=== PATIENT | male | born 1975 | race Native Hawaiian/Other Pacific Islander ===

== ENCOUNTER 2023-11-19 11:25 | Inpatient (IN) | payer OTHER, SELFPAY ==
[2023-11-19] VITALS (17 sets, daily range): BP systolic 116–146; BP diastolic 77–105; PULSE 111–119; RESP 16–25; TEMP 36.7–36.8; O2SAT 90–94; BMI 33.0; BMI 30.4
--- NOTE | 2023-11-19 11:26 | XR_ITS ---
WS: [id number] Portable AP upright chest, 11/19/2023 Clinical Data: sob Comparison: None. Findings: No nodules, masses or effusions are seen. The heart is normal. The pulmonary vascularity is not increased. No pneumonia or pneumothorax is seen. Impression: Negative chest.
--- NOTE | 2023-11-19 11:34 | ECG_ITS ---
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 Measurements Intervals [place] Rate: 117 P: 43 [place]: 134 QRS: -76 QRSD: 97 T: 50 QT: 306 QTc: 428 Interpretive Statements SINUS TACHYCARDIA LEFT AXIS DEVIATION [QRS AXIS < -30] No previous ECG available for comparison Electronically Signed On 11-19-2023 14:42:18 COMMUNITY ASSISTANT by Favian Palacio M.D. [email or web address]/[id number]
--- NOTE | 2023-11-19 11:39 | W.ED.SOB ---
HPI - SOB/Dyspnea General: Chief Complaint: Shortness of Breath/Dyspnea Stated Complaint: post op trouble, sob Time Seen by Provider: 11/19/23 11:34 Source: patient Mode of arrival: ambulatory Limitations: no limitations History of Present Illness: HPI Narrative: 48-year-old male states that he had pancreatic stent that was replaced on Thursday in [place] he states that he has gastroparesis and vomited and aspirated during the procedure he states he had to be intubated overnight and they released him yesterday he has been on Levaquin he states he has been having increasing shortness of breath and worsening cough and some low-grade fevers denies any abdominal pain. Associated symptoms: Reports fever(s); Deny abdominal pain, chest pain, nausea or vomiting Review of Systems Const: Reports: fever(s) and chills; Denies: body aches or change in appetite Eyes: Denies: blurry vision or eye discomfort ENMT: Denies: throat pain or dental pain Card: Denies: chest pain Resp: Reports: dyspnea and non-productive cough GI: Denies: abdominal pain, nausea, vomiting or diarrhea Musc: Denies: neck pain or back pain Skin/Breast: Denies: rash Neuro: Denies: headache(s) Physical Exam Const: COMMON NORMALS: patient oriented x3 HENMT: COMMON NORMALS: normocephalic and atraumatic HEAD & SCALP: normocephalic and atraumatic Neck/C-Spine: COMMON NORMALS: full ROM and supple Chest: COMMONS NORMALS: normal inspection of the chest and normal palpation of entire chest wall Resp: COMMON NORMALS: No retractions AUSCULTATION: rales Cardio: COMMON NORMALS: regular rhythm and No murmurs present (Cardio) RATE: tachycardic RHYTHM: regular rhythm GI: INSPECTION: Yes normal to inspection Extremity: COMMON NORMALS: normal to inspection and full ROM Neuro: COMMON NORMALS: patient oriented x3, moves all extremities and no focal motor deficits Psych: COMMON NORMALS: mental status grossly normal, Normal thought process present and cooperative THOUGHT PROCESS: Normal thought process present Skin: COMMON NORMALS: no rashes or lesions noted and no wounds GENERAL SKIN EXAM: no rashes or lesions noted Course Vital Signs: Vital signs: Vital Signs Temperature 98.0 F 11/19/23 11:30 Pulse Rate 118 H 11/19/23 12:03 Respiratory Rate 16 11/19/23 11:30 Blood Pressure 131/85 11/19/23 12:03 Pulse Oximetry 92 11/19/23 12:03 Oxygen Delivery Me thod Room Air 11/19/23 12:03 MDM - SOB/Dyspnea Medical Decision Making Patient presents here with shortness of breath from likely aspiration pneumonia CT of his chest does show pneumonia he has been having increasing shortness of breath on the oral antibiotics he is oxygen is around 90% here I did speak to the hospitalist will admit for IV antibiotics at this time. Medical Records I reviewed the patient's medical records. Lab Data I reviewed the patient's lab results. 11/19/23 11:50 11/19/23 11:50 Labs/Radiology: Laboratory Results WBC 13.78 10^3/uL (3.29-11.43) H 11/19/23 11:50 RBC 5.59 10^6/uL (3.85-5.65) 11/19/23 11:50 Hgb 14.70 g/dL (11.27-16.99) 11/19/23 11:50 Hct 44.9 % (37-53) 11/19/23 11:50 MCV 80.3 fl (82-101) L 11/19/23 11:50 MCH 26.3 pg (27-33) L 11/19/23 11:50 MCHC 32.7 g/dL (30-55) 11/19/23 11:50 RDW 13.9 % (12.1-15.1) 11/19/23 11:50 Plt Count 318 10^3/cmm (157-399) 11/19/23 11:50 MPV 8.9 fL (7.4-10.4) 11/19/23 11:50 Neut % (Auto) 74.0 % 11/19/23 11:50 Lymph % (Auto) 15.1 % 11/19/23 11:50 [place] % (Auto) 9.2 % 11/19/23 11:50 Eos % (Auto) 1.1 % 11/19/23 11:50 Baso % (Auto) 0.2 % 11/19/23 11:50 Neut # (Auto) 10.19 10^3/uL (1.8-7.7) H 11/19/23 11:50 Lymph # (Auto) 2.1 10^3/uL (0.8-4.8) 11/19/23 11:50 [place] # (Auto) 1.3 10^3/uL (0.2-0.9) H 11/19/23 11:50 Eos # (Auto) 0.2 10^3/uL (0.0-0.8) 11/19/23 11:50 Baso # (Auto) 0.0 10^3/uL (0.0-0.1) 11/19/23 11:50 Nucleated RBC % (auto) 0 % 11/19/23 11:50 Nucleated RBCs # 0.0 /100WBC 11/19/23 11:50 PT 13.80 SECONDS (12.1-14.9) 11/19/23 11:50 INR 1.03 (0.8-1.2) 11/19/23 11:50 Sodium 134 mmol/L (136-145) L 11/19/23 11:50 Potassium 4.0 mmol/L (3.5-5.1) 11/19/23 11:50 Chloride 94 mmol/L (98-107) L 11/19/23 11:50 Carbon Dioxide 25 mmol/L (22-29) 11/19/23 11:50 Anion Gap 19.0 (5-19) 11/19/23 11:50 BUN 17 mg/dL (6-20) 11/19/23 11:50 Creatinine 1.1 mg/dL (0.7-1.2) 11/19/23 11:50 GFR Calculation 70.9 mL/min (90-130) L 11/19/23 11:50 Glucose 182 mg/dL (65-115) H 11/19/23 11:50 Calculated Osmolality 284 mOsm/kg (285-295) L 11/19/23 11:50 Calcium 9.5 mg/dL (8.5-10.5) 11/19/23 11:50 Total Bilirubin 0.7 mg/dL (0.15-1.2) 11/19/23 11:50 AST 39 U/L (0-40) 11/19/23 11:50 ALT 64 U/L (0-41) H 11/19/23 11:50 Alkaline Phosphatase 95 U/L (40-130) 11/19/23 11:50 Troponin T Baseline 11 ng/L (0-15) 11/19/23 11:50 NT-Pro-B Natriuret Pep 41 pg/mL (0-125) 11/19/23 11:50 Total Protein 7.9 g/dL (6.6-8.7) 11/19/23 11:50 Albumin 4.5 g/dL (3.5-5.2) 11/19/23 11:50 Globulin 3.4 g/dL (1.3-4.6) 11/19/23 11:50 All radiology interpretation(s) finalized by discharge EKG Data EKG 1: I personally reviewed and interpreted this EKG as follows: EKG Interpretation Date: 11/19/23 EKG interpretation time: 11:40 Interpretation: sinus tach hr [address] or t wave abnormalities qts 97 qtc 375 EKG 2: I personally reviewed and interpreted this EKG as follows: EKG Interpretation Date: 11/19/23 EKG interpretation time: 13:39 Interpretation: sinus tachy hr [address] or t wave abnormalities qrs 97 qtc 380 Discharge Plan Discharge Condition: Stable Prescriptions: No Action acetaminophen 325 mg Tablet 325 mg PO Q4H PRN (Reason: pain or fever) cetirizine 10 mg Tablet 10 mg PO DAILY PRN (Reason: allergies) chlorthalidone 25 mg Tablet 25 mg PO QAM Throat Lozenges 2.4 mg Lozenge 1 tara MUCOUS MEMBRANE Q2H PRN (Reason: Sore Throat) Levaquin 500 mg Tablet 500 mg PO DAILY albuterol sulfate 90 mcg/actuation Hfa Aerosol Inhaler 2 inh INHALATION Q6H PRN (Reason: Shortness Of Breath) fluticasone propionate [Flonase] 50 mcg/actuation [place],Suspension 2 spray INTRANASAL QAM Rx Instructions: administer into each nostril Dilacor XR 180 mg Capsule,Ext.Rel 24h Degradable 180 mg PO BEDTIME fenofibrate nanocrystallized 145 mg Tablet 145 mg PO QAM Creon 24,000-76,000 -120,000 unit Capsule,Delayed Release(Dr/Ec) 2 cap PO TID Rx Instructions: administer with meals and/or snacks Spiriva Respimat 2.5 mcg/actuation Mist 2 puff INHALATION QAM losartan 50 mg Tablet 75 mg PO BEDTIME ondansetron HCl 8 mg Tablet 8 mg PO Q6H PRN (Reason: nausea or vomiting) insulin aspart U-100 100 unit/mL Solution 100 unit SUBCUT PRN pantoprazole [address] For Susp In Packet 40 mg PO QAM Coding Level of Care Code ED Fountain Dispenser for Velasquez Barger
--- NOTE | 2023-11-19 11:48 | CT_ITS ---
WS: [id number] CTA OF THE CHEST WITH PULMONARY EMBOLISM PROTOCOL TECHNIQUE: High-resolution contrast enhanced CTA of the chest with coronal and sagittal reformatted i chelsys with pulmonary embolism protocol. MIP images are also reviewed. CLINICAL INFORMATION: sob COMPARISON: None. DLP: 438.[address] scans at [facility] use at least one of these dose optimization techniques: automated e xposure control; mA and/or kV adjustment per patient size (includes targeted exams where dose is matc hed to clinical indication); or iterative reconstruction. FINDINGS: Proximal main pulmonary arteries are normal. Normal segmental and subsegmental pulmonary arteries. No evidence of pulmonary embolus. No filling defects to suggest pulmonary embolus. Small hazy opacities along the subsegmental pulmonary arteries in the LEFT greater than RIGHT upper lobes can be seen wit h septic emboli. Patchy infiltrates in the LEFT lower lobe with tree-in-bud opacities. Compressive at electasis LEFT lower lobe. Normal caliber thoracic aorta. Normal caliber descending thoracic aorta. No mediastinal or hilar lymp hadenopathy. No axillary lymphadenopathy. Diffuse fatty infiltration of the liver. Incidental pneumob shadia. Cholecystectomy. Small esophageal hernia. Adrenal glands are normal. Mild thoracic curve. Schmo rl's node in the lower thoracic spine. IMPRESSION: 1. No evidence of pulmonary embolus. 2. Patchy peripheral wedge-shaped opacities in the LEFT greater than RIGHT upper lobes nonspecific b ut can be seen with septic emboli. Recommend correlation for endocarditis. 3. Patchy infiltrates and atelectasis in the LEFT lower lobe with tree-in-bud nodularity. Slight com pressive atelectasis LEFT lower lobe. 4. Diffuse fatty infiltration of the liver. 5. Small esophageal hiatal hernia.
[2023-11-19 12:10] LABS: Basophils % 0.2 %; Eosinophils # 0.2 10^3/uL (0.0-0.8); Eosinophils % 1.1 %; Hematocrit 44.9 % (37-53); Lymphocytes # 2.1 10^3/uL (0.8-4.8); Lymphocytes % 15.1 %; Mean Corpuscular HGB Conc 32.7 g/dL (30-55); Mean Corpuscular Hemoglobin 26.3 pg (27-33); Mean Corpuscular Volume 80.3 fl (82-101); Mean Platelet Volume 8.9 fL (7.4-10.4); Monocytes # 1.3 10^3/uL (0.2-0.9); Monocytes % 9.2 %; Neutrophils # 10.19 10^3/uL (1.8-7.7); Nucleated Red Blood Cells % 0 %; Platelet Count 318 10^3/cmm (157-399); Red Blood Count 5.59 10^6/uL (3.85-5.65); Red Cell Distribution Width 13.9 % (12.1-15.1); White Blood Count 13.78 10^3/uL (3.29-11.43)
[2023-11-19 12:16] LABS: INR 1.03 (0.8-1.2)
[2023-11-19 12:25] LABS: Troponin(5th) Baseline 11 ng/L (0-15)
[2023-11-19] MEDS: iohexol 350 mg/mL 500 mL Btl (per mL) IV (12:27)
[2023-11-19 12:32] LABS: Alanine Aminotransferase 64 U/L (0-41); Albumin Level 4.5 g/dL (3.5-5.2); Alkaline Phosphatase 95 U/L (40-130); Aspartate Amino Transferase 39 U/L (0-40); Blood Urea Nitrogen 17 mg/dL (6-20); Calcium 9.5 mg/dL (8.5-10.5); Carbon Dioxide 25 mmol/L (22-29); Chloride 94 mmol/L (98-107); Creatinine Clr Calc Pharmacy 97.1936; Globulin 3.4 g/dL (1.3-4.6); Glomerular Filtration Rate 70.9 mL/min (90-130); Glucose 182 mg/dL (65-115); NT Pro B Type Natriuretic Pept 41 pg/mL (0-125); Osmolality Calculated 284 mOsm/kg (285-295); Sodium 134 mmol/L (136-145); Total Bilirubin 0.7 mg/dL (0.15-1.2); Total Protein 7.9 g/dL (6.6-8.7)
--- NOTE | 2023-11-19 12:50 | PC.PHAR ---
PT IS [facility] BUT HAS MEDICATION LIST FROM [facility] DISCHARGE PAPERWORK. ALL CURRENT MEDS ADDED AND STOPPED MEDICATIONS ARE: ALEVE, IBUPROFEN, INSULIN GLARGINE, METFORMIN AND TURMERIC.
--- NOTE | 2023-11-19 13:39 | ECG_ITS ---
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 Measurements Intervals [place] Rate: 118 P: 50 [place]: 143 QRS: -76 QRSD: 97 T: 52 QT: 310 QTc: 434 Interpretive Statements SINUS TACHYCARDIA POSSIBLE LEFT ATRIAL ENLARGEMENT [-0.1mV P-WAVE IN V1/V2] LEFT AXIS DEVIATION [QRS AXIS < -30] Compared to ECG 11/19/2023 11:40:52 No significant changes Electronically Signed On 11-19-2023 14:47:31 IC DESIGN MANAGER by Favian Palacio M.D. [id number]
[2023-11-19] MEDS: levofloxacin-dextrose 5 % 750 MG/150 ML PREMIX 100 MG IV (13:49)
--- NOTE | 2023-11-19 13:59 | P.HP_ITS ---
Providers/Chief Complaint 2 Chief Complaint: post op trouble, sob History of Present Illness Jonathan Siegel is a 48 year old male who recently had exchange of biliary and pancreatic stents, and total he had 4 stents exchanged at [facility], patient is stating that he was intubated for aspiration, he was observed overnight, next day he was extubated, he was sent home without any oxygen, he was given albuterol and levofloxacin. But he has been experiencing increased sputum production, cough, fever 100.8, no nausea or vomiting. Came to the hospital for further evaluation. He has been diagnosed with pneumonia tree-in-bud appearance wedge-shaped opacification left greater than right Fatty infiltration of liver Small esophageal hernia He is not requiring oxygen He is afebrile Leukocytosis noted Patient is not acidotic I will request lactic acid Patient is stating that he had bad reaction to vancomycin in the past which she describing as his vein gets infiltrated Review of Systems 2 Const: Reports: fever(s) and malaise Eyes: Denies: change in vision ENMT: Denies: throat pain Card: Denies: chest pain Resp: Reports: dyspnea and productive cough GI: Denies: abdominal pain : Denies: flank pain Medications/Allergies Home Medications Medication Instructions Recorded Confirmed Last Taken Type acetaminophen 325 mg tablet 325 mg PO Q4H PRN pain or fever 11/19/23 11/19/23 Unknown History albuterol sulfate 90 mcg/actuation 2 inh inhalation Q6H PRN Shortness 11/19/23 11/19/23 11/19/23 History aerosol inhaler Of Breath cetirizine 10 mg tablet 10 mg PO DAILY PRN allergies 11/19/23 11/19/23 Unknown History chlorthalidone 25 mg tablet 25 mg PO QAM 11/19/23 11/19/23 11/19/23 History diltiazem HCl 180 mg 180 mg PO BEDTIME 11/19/23 11/19/23 11/18/23 History capsule,extended release 24 hr, controlled fenofibrate nanocrystallized 145 145 mg PO QAM 11/19/23 11/19/23 11/19/23 History mg tablet fluticasone propionate 50 2 spray intranasal QAM 11/19/23 11/19/23 11/18/23 History mcg/actuation nasal spray,suspension hexylresorcinol 2.4 mg lozenges 1 tara mucous membrane Q2H PRN Sore 11/19/23 11/19/23 Unknown History Throat insulin aspart U-100 100 unit/mL 100 unit SUBCUT PRN 11/19/23 11/19/23 11/19/23 History subcutaneous solution levofloxacin 500 mg tablet 500 mg PO DAILY 11/19/23 11/19/23 11/18/23 History jjdbxr-hdvxgtou-vlrpiib 2 cap PO TID 11/19/23 11/19/23 11/18/23 History 24,000-76,000-120,000 unit capsule,delayed rel (Creon) losartan 50 mg tablet 75 mg PO BEDTIME 11/19/23 11/19/23 11/18/23 History ondansetron HCl 8 mg tablet 8 mg PO Q6H PRN nausea or vomiting 11/19/23 11/19/23 Unknown History pantoprazole 40 mg granules 40 mg PO QAM 11/19/23 11/19/23 11/19/23 History delayed-release for susp in packet tiotropium bromide 2.5 2 puff inhalation QA 11/19/23 11/19/23 11/19/23 History mcg/actuation mist for inhalation (Spiriva Respimat) PFSH Acute 2 PFSH: Medical History Hypertension Diabetes Presence of pancreatic duct stent Pancreatitis, necrotizing Surgical History History of cholecystectomy History of biliary duct stent placement Social History Smoking and tobacco/nicotine status: former use of tobacco/nicotine Alcohol intake: never Vitals/I&O/Wt Last Vital Signs Temp 98.0 F 11/19/23 11:30 Pulse 118 H 11/19/23 12:03 Resp 16 11/19/23 11:30 BP 131/85 11/19/23 12:03 Pulse Ox 92 11/19/23 12:03 O2 Del Method Room Air 11/19/23 12:03 Weight last 48 hrs Weight 104.326 kg Physical Exam 2 Narrative: Patient is awake and alert Diminished breath sound bilateral bases GCS 15 Nonfocal neuroexam Active nausea vomiting No signs of dehydration S1, S2 Pleasant cooperative Sitting at the bedside Appears stated age Data 11/19/23 11:50 11/19/23 11:50 Micro: Microbiology 11/19/23 12:38 Blood Culture - Preliminary Blood SPECIMEN COLLECTED 11/19/23 11:50 Blood Culture - Preliminary Blood SPECIMEN COLLECTED A&P Assessment and plan (1) Hospital-acquired pneumonia: (2) Aspiration pneumonia: (3) Diabetes: Plan Hospital-acquired pneumonia I will cover anti-MRSA and double antipseudomonal coverage Will add linezolid and levofloxacin and Zosyn. Request MRSA nares PCR Patient is tachycardic with leukocytosis no signs of endorgan damage, afebrile, No active sepsis Monitor closely if you develop sepsis overnight Received antibiotics in the ER CTA chest did not show PE Cystic fibrosis? 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
[2023-11-19 14:22] LABS: Troponin 5 2HR 10.31 ng/L (0-15)
[2023-11-19 14:27] LABS: Troponin 5 2HR Delta -0.69 ABS# (0-10)
[2023-11-19 14:47] LABS: Procalcitonin 0.16 ng/mL (0-0.5)
[2023-11-19] MEDS: ondansetron 2 mg/ML SDV 2 mL 4 MG IVP (15:36)
[2023-11-19] MEDS: HYDROmorphone 1 mg/mL INJ 1 mL IVP (15:38)
--- NOTE | 2023-11-19 17:34 | ECG_ITS ---
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 Measurements Intervals [place] Rate: 113 P: 53 [place]: 141 QRS: -62 QRSD: 98 T: 53 QT: 318 QTc: 438 Interpretive Statements SINUS TACHYCARDIA POSSIBLE LEFT ATRIAL ENLARGEMENT [-0.1mV P-WAVE IN V1/V2] LEFT AXIS DEVIATION [QRS AXIS < -30] Compared to ECG 11/19/2023 13:39:18 No significant changes Electronically Signed On 11-20-2023 17:57:19 HOUSEHOLD COORDINATOR by Erica Puente M.D. [id number]
--- NOTE | 2023-11-19 17:36 | USCV_ITS ---
Jonathan Siegel Age: 48 Gender: M : 1975 Exam Date: 11/19/2023 19:12 Ordering Phys: Carlos Man MD Technologist: FRITZ Exam Location: [facility] Indication: order says IE concern. No history of cardiac intervention per patient. Patient denies fever. IDDM x 6yrs BP: 133 / 85 HR: 99 Rhythm: Sinus Technical Quality: Adequate MEASUREMENTS (Male / Female) Normal Values 2D ECHO LV Diastolic Diameter PLAX 4.4 cm 4.2 - 5.9 / 3.9 - 5.3 cm IVS Diastolic Thickness 1.6 cm 0.6 - 1.0 / 0.6 - 0.9 cm IVS Systolic Thickness 2.0 cm LVPW Diastolic Thickness 1.8 cm 0.6 - 1.0 / 0.6 - 0.9 cm LVPW Systolic Thickness 2.1 cm LVOT Diameter 2.0 cm LV Ejection Fraction 2D Teich 63.4 % LV Ejection Fraction MOD 2C 51.5 % LV Ejection Fraction 2C AL 52.5 % LA Diameter 2.4 cm Aorta at Sinotubular Diameter 3.2 cm IVC Diameter 1.5 cm M-MODE LA Ao Ratio MM 1.3 AV Cusp Separation MM 2.0 cm DOPPLER AV Peak Velocity 116.0 cm/s LVOT Peak Velocity 90.0 cm/s AV Area Cont Eq vti 2.3 cm squared AV Area Cont Eq pk 2.3 cm squared MV Peak Velocity 130.0 cm/s MV Area PHT 4.7 cm squared Mitral E to A Ratio 0.7 TV Peak E Velocity 51.0 cm/s PV Peak Velocity 89.0 cm/s FINDINGS Left Ventricle Normal left ventricular size and systolic function, EF 63.4%.mild left ventricular hypertrophy. No regional wall motion abnormalities. Right Ventricle The right ventricle is normal in size and function. Right Atrium The right atrium is normal in size. Left Atrium The left atrium is normal in size. Mitral Valve Trace mitral valve regurgitation. Aortic Valve No gross abnormalities Tricuspid Valve Trace tricuspid valve regurgitation. Pulmonic Valve Mild pulmonary valve regurgitation. Pericardium Normal pericardium without effusion. Aorta Normal ascending aorta dimension. IVC The inferior vena cava appears normal. CONCLUSIONS Normal left ventricular size and systolic function, EF 63.4%.mild left ventricular hypertrophy. No regional wall motion abnormalities. Trace mitral valve regurgitation. Trace tricuspid valve regurgitation. There is no pericardial effusion. There are no intracardiac masses. No similar previous studies are available for comparison Dr Erica Puente MD [facility] (Electronically Signed) Final Date: 19 November 2023 20:08 S
[2023-11-19 18:20] LABS: Thyroid Stimulating Hormone 0.45 uIU/mL (0.27-4.20)
[2023-11-19] MEDS: sodium chloride 0.9% 1,000 ML 75 ML IV (18:22)
[2023-11-19] MEDS: linezolid premix 600 MG/300 ML PREMIX 300 MG IV (18:22)
[2023-11-19 18:37] LABS: Troponin 5 6HR 8.42 ng/L (0-15)
[2023-11-19 18:43] LABS: Troponin 5 6HR Delta -2.58 ng/L (0-12)
[2023-11-19] MEDS: morphine IR 15 mg Tablet PO (20:05)
[2023-11-19] MEDS: losartan 50 mg Tablet 75 MG PO (20:06)
[2023-11-19] MEDS: dilTIAZem ER (24HR) 180 mg Capsule PO (20:07)
[2023-11-19] MEDS: piperacillin-tazobactam 3.375 GM in sodium chloride 0.9% (plus) 50 ML IV (20:07)
[2023-11-19 20:46] LABS: Lactic Sepsis W/Reflex 1.4 mmol/L (0.5-2.2)
[2023-11-19] MEDS: ipratropium-albuterol 3 mL Neb INHALATION (21:04)
[2023-11-20] VITALS (15 sets, daily range): BP systolic 99–145; BP diastolic 64–80; PULSE 83–116; RESP 15–17; TEMP 36.4–37.1; O2SAT 90–95; BMI 30.7
[2023-11-20] MEDS: acetylcysteine 200 mg/mL SDV 4 mL INHALATION ×4 (02:33→23:55)
[2023-11-20] MEDS: ipratropium-albuterol 3 mL Neb INHALATION ×2 (02:33→08:09)
[2023-11-20] MEDS: piperacillin-tazobactam 3.375 GM in sodium chloride 0.9% (plus) 50 ML IV ×3 (04:31→21:43)
[2023-11-20] MEDS: linezolid premix 600 MG/300 ML PREMIX 300 MG IV ×2 (05:28→17:33)
[2023-11-20] MEDS: fenofibrate 145 mg Tablet PO (05:30)
[2023-11-20] MEDS: pantoprazole DR 40 mg Tablet PO (05:30)
[2023-11-20] MEDS: chlorthalidone 25 mg Tablet PO (05:30)
[2023-11-20 06:00] LABS: Basophils % 0.2 %; Eosinophils # 0.2 10^3/uL (0.0-0.8); Eosinophils % 1.9 %; Hematocrit 40.3 % (37-53); Lymphocytes # 1.4 10^3/uL (0.8-4.8); Lymphocytes % 13.3 %; Mean Corpuscular HGB Conc 32.5 g/dL (30-55); Mean Corpuscular Hemoglobin 26.1 pg (27-33); Mean Corpuscular Volume 80.4 fl (82-101); Monocytes % 9.2 %; Neutrophils % 74.9 %; Nucleated Red Blood Cells % 0 %; Platelet Count 233 10^3/cmm (157-399); Red Blood Count 5.01 10^6/uL (3.85-5.65); Red Cell Distribution Width 13.9 % (12.1-15.1); White Blood Count 10.42 10^3/uL (3.29-11.43)
[2023-11-20 07:01] LABS: Anion Gap 14.4 (5-19); Blood Urea Nitrogen 19 mg/dL (6-20); C Reactive Protein 126.2 mg/L (0.0-4.9); Calcium 8.7 mg/dL (8.5-10.5); Carbon Dioxide 24 mmol/L (22-29); Chloride 99 mmol/L (98-107); Creatinine Clr Calc Pharmacy 94.5959; Glomerular Filtration Rate 70.9 mL/min (90-130); Glucose 168 mg/dL (65-115); Magnesium 1.8 mg/dL (1.7-2.3); Osmolality Calculated 284 mOsm/kg (285-295); Phosphorus 2.9 mg/dL (2.5-4.5); Potassium 3.4 mmol/L (3.5-5.1); Sodium 134 mmol/L (136-145)
--- NOTE | 2023-11-20 08:55 | PC.CHAP ---
Pastoral Care Encounter/Spiritual Assessment Type of Contact [] Declined grinder operator tool visit [] Patient/Family/Request visit [] Outpatient visit [] Follow-up visit [] Physician referral [] Code/Alert [] Routine visit [] Staff referral [] Actively dying [] Patient sleeping [] Family support [] [] Out of room [] Palliative care [] [x] Receiving care in room [] Pre-surgical visit [] Trauma [] Long length of stay [] ICU visit [] Other: Relational/Emotional Strength [] Patient feels connected with others/family/visitors/staff [] Distress [] Loneliness/isolation [] Abandonment Spirituality of Patient [] Person of Viola [] Attends Nondenominational of their [place] [] Believes in Prayer [] Reads Bible or Nondenominational materials [] There are Spiritual issues to be addressed Roustabout Hand Interventions [] Prayer [] Active listening [] Non-anxious presence [] Spiritual/emotional support [] Crisis/trauma care [] Spiritual counseling [] Bereavement support [] Provided bereavement packet [] Provided Bible/devotional materials [] Provided toy/stuffed animal, coloring book to patient or family member [] Provided Communion [] Anointing/Hamer [] Salvation [] Completed spiritual assessment [] Other: Impact on Illness or Injury [] Angry [] Fearful [] Anxious [] Often cries [] Exhaustion [] Unable to work [] Unable to attend mandaen [] Unable to walk/stand [] Unable to read [] Unable to drive [] Unable to eat/drink [] Unable to sleep [] Unable to be with family [] Patient intubated [] Other: Summary Time spent with patient
[2023-11-20] MEDS: levoFLOXacin 500 mg Tablet 750 MG PO (09:04)
[2023-11-20] MEDS: sodium chloride 0.9% 1,000 ML 75 ML IV (09:04)
[2023-11-20] MEDS: morphine IR 15 mg Tablet PO (09:04)
[2023-11-20] MEDS: sennosides-docusate Tablet 1 TAB PO (09:04)
--- NOTE | 2023-11-20 09:28 | P.PN_ITS ---
Subjective 2 Subjective: Patient is stating that he is still coughing up thick yellow-brown to yellow sputum He is afebrile no leukocytosis Complaining of left-sided pain on deep breathing Echo unremarkable No leukocytosis or fever Vitals/I&O/Wt Last Vital Signs Temp 98.0 F 11/20/23 07:58 Pulse 89 11/20/23 08:17 Resp 16 11/20/23 09:04 BP 117/71 11/20/23 07:58 Pulse Ox 92 11/20/23 08:17 O2 Del Method Nasal Cannula 11/20/23 08:17 O2 Flow Rate 2 11/20/23 08:17 11/19/23 11/20/23 11/20/23 22:59 06:59 14:59 Intake Total 930 / 930 350 / 1280 1410 / 1410 Balance 930 / 930 350 / 1280 1410 / 1410 Weight last 48 hrs Weight 98.611 kg Weight 97.432 kg Weight 104.326 kg Physical Exam 2 Narrative: Awake and alert GCS 15 Pleuritic pain Pleasant Euvolemic Abdominal pain currently on 2 L nasal cannula No active wheezing or crackles Data 11/20/23 05:10 11/20/23 05:10 Micro: Microbiology 11/19/23 12:38 Blood Culture - Preliminary Blood SPECIMEN COLLECTED 11/19/23 11:50 Blood Culture - Preliminary Blood SPECIMEN COLLECTED A&P Assessment and plan (1) Diabetes: (2) Hospital-acquired pneumonia: Plan Hospital-acquired pneumonia Afebrile No leukocytosis Inpatient stay stable I will be able to discharge him by tomorrow Left-sided pleuritic pain No history of cystic fibrosis Echo unremarkable Continue anti-MRSA double antipseudomonal coverage The reason I am monitoring patient's closely as he recently had a procedure aspirated and then start experiencing thick yellow-brown to yellow sputum Sputum culture is still pending No sign of endocarditis echo unremarkable cultures negative, can bring in pancreatic enzymes which we can use Replenish electrolytes Hypokalemia: Replenished Attestations 2 Medical Necessity Statement*: Continue medical management Diagnoses Diabetes E11.9 Hospital-acquired pneumonia J18.9; Y95
[2023-11-20] MEDS: dilTIAZem ER (24HR) 180 mg Capsule PO (21:42)
[2023-11-20] MEDS: losartan 50 mg Tablet 75 MG PO (21:42)
[2023-11-21] VITALS (9 sets, daily range): BP systolic 98–107; BP diastolic 61–69; PULSE 80–99; RESP 16–18; TEMP 36.7–36.9; O2SAT 90–94
[2023-11-21 03:26] LABS: Basophils % 0.2 %; Eosinophils # 0.2 10^3/uL (0.0-0.8); Eosinophils % 2.3 %; Hematocrit 42.3 % (37-53); Lymphocytes # 1.2 10^3/uL (0.8-4.8); Lymphocytes % 13.9 %; Mean Corpuscular HGB Conc 32.2 g/dL (30-55); Mean Corpuscular Hemoglobin 26.2 pg (27-33); Mean Corpuscular Volume 81.5 fl (82-101); Mean Platelet Volume 8.9 fL (7.4-10.4); Monocytes # 0.9 10^3/uL (0.2-0.9); Monocytes % 11.1 %; Neutrophils # 5.94 10^3/uL (1.8-7.7); Neutrophils % 70.9 %; Nucleated Red Blood Cells % 0 %; Platelet Count 243 10^3/cmm (157-399); Red Blood Count 5.19 10^6/uL (3.85-5.65); Red Cell Distribution Width 13.6 % (12.1-15.1); White Blood Count 8.37 10^3/uL (3.29-11.43)
[2023-11-21 03:49] LABS: Anion Gap 14.9 (5-19); Blood Urea Nitrogen 17 mg/dL (6-20); Calcium 9.1 mg/dL (8.5-10.5); Carbon Dioxide 26 mmol/L (22-29); Chloride 96 mmol/L (98-107); Creatinine Clr Calc Pharmacy 86.7129; Glomerular Filtration Rate 64.1 mL/min (90-130); Glucose 143 mg/dL (65-115); Osmolality Calculated 280 mOsm/kg (285-295); Potassium 3.9 mmol/L (3.5-5.1); Sodium 133 mmol/L (136-145)
[2023-11-21] MEDS: acetylcysteine 200 mg/mL SDV 4 mL INHALATION ×2 (03:55→07:53)
[2023-11-21] MEDS: piperacillin-tazobactam 3.375 GM in sodium chloride 0.9% (plus) 50 ML IV (04:07)
[2023-11-21] MEDS: fenofibrate 145 mg Tablet PO (06:00)
[2023-11-21] MEDS: linezolid premix 600 MG/300 ML PREMIX 300 MG IV (06:01)
[2023-11-21] MEDS: pantoprazole DR 40 mg Tablet PO (06:01)
[2023-11-21] MEDS: chlorthalidone 25 mg Tablet PO (06:01)
[2023-11-21] MEDS: ipratropium-albuterol 3 mL Neb INHALATION (07:52)
--- NOTE | 2023-11-21 09:02 | PM.DCS ---
Discharge Providers Date of Admission: 11/19/23 13:30 Date of Discharge: November 21, 2023 Attending Provider at Admission: Carlos Man MD Attending Provider at Discharge: Carlos Man MD Primary Care Provider: Sharon Canales MD Diagnoses at Discharge Discharge Diagnosis (1) Diabetes: Status: Acute (2) Hospital-acquired pneumonia: Status: Acute Reason for Visit Reason for Visit: post op trouble, sob Hospital Course Hospital Course 48-year-old male with history of necrotizing pancreatitis, no history of cystic fibrosis, recently had exchange of stents at [place] patient is stating that he got 4 stents exchange for biliary and pancreatic ducts, after the procedure patient vomited and aspirated he had to be intubated patient was monitored overnight he was extubated next day and discharged home, he presented to hospital for fever, productive cough he was diagnosed with hospital-acquired pneumonia, he was given broad-spectrum antibiotics and double antipseudomonal coverage, he remained afebrile no leukocytosis, his cough has improved however still endorsing sputum production of yellow mucus, I will prescribe him Augmentin and doxycycline for next 7 days. We have arranged nebulizer from [place], will give him DuoNeb at the time of discharge. He did not qualify for oxygen. Echo unremarkable he was experiencing left-sided pleuritic pain. Physical Exam Narrative: T awake and alert GCS 15 Euvolemic Sitting in chair Diminished breath sounds at the bases Otherwise no wheezing or crackles Currently on room air Pleasant and cooperative Discharge Data Studies Completed and Pending Completed Studies During Hospitalization Category Date Time Status CTA chest [CT angio chest PE protcl [id number]] Stat Cat Scan 11/19/23 11:48 Completed XR chest 1V portable [id number] Stat Exams 11/19/23 11:26 Completed CV. echo complete* [id number] Routine Ultrasound 11/19/23 17:36 Completed Pending at discharge Category Date Time Status Blood Culture Stat Lab 11/19/23 12:38 Results Sputum Culture and Gram Stain Routine Lab 11/20/23 16:05 Results Laboratory Results WBC 8.37 10^3/uL (3.29-11.43) 11/21/23 02:44 RBC 5.19 10^6/uL (3.85-5.65) 11/21/23 02:44 Hgb 13.60 g/dL (11.27-16.99) 11/21/23 02:44 Hct 42.3 % (37-53) 11/21/23 02:44 MCV 81.5 fl (82-101) L 11/21/23 02:44 MCH 26.2 pg (27-33) L 11/21/23 02:44 MCHC 32.2 g/dL (30-55) 11/21/23 02:44 RDW 13.6 % (12.1-15.1) 11/21/23 02:44 Plt Count 243 10^3/cmm (157-399) 11/21/23 02:44 MPV 8.9 fL (7.4-10.4) 11/21/23 02:44 Neut % (Auto) 70.9 % 11/21/23 02:44 Lymph % (Auto) 13.9 % 11/21/23 02:44 [place] % (Auto) 11.1 % 11/21/23 02:44 Eos % (Auto) 2.3 % 11/21/23 02:44 Baso % (Auto) 0.2 % 11/21/23 02:44 Neut # (Auto) 5.94 10^3/uL (1.8-7.7) 11/21/23 02:44 Lymph # (Auto) 1.2 10^3/uL (0.8-4.8) 11/21/23 02:44 [place] # (Auto) 0.9 10^3/uL (0.2-0.9) 11/21/23 02:44 Eos # (Auto) 0.2 10^3/uL (0.0-0.8) 11/21/23 02:44 Baso # (Auto) 0.0 10^3/uL (0.0-0.1) 11/21/23 02:44 Nucleated RBC % (auto) 0 % 11/21/23 02:44 Nucleated RBCs # 0.0 /100WBC 11/21/23 02:44 PT 13.80 SECONDS (12.1-14.9) 11/19/23 11:50 INR 1.03 (0.8-1.2) 11/19/23 11:50 Sodium 133 mmol/L (136-145) L 11/21/23 02:44 Potassium 3.9 mmol/L (3.5-5.1) 11/21/23 02:44 Chloride 96 mmol/L (98-107) L 11/21/23 02:44 Carbon Dioxide 26 mmol/L (22-29) 11/21/23 02:44 Anion Gap 14.9 (5-19) 11/21/23 02:44 BUN 17 mg/dL (6-20) 11/21/23 02:44 Creatinine 1.2 mg/dL (0.7-1.2) 11/21/23 02:44 GFR Calculation 64.1 mL/min (90-130) L 11/21/23 02:44 Glucose 143 mg/dL (65-115) H 11/21/23 02:44 Calculated Osmolality 280 mOsm/kg (285-295) L 11/21/23 02:44 Lactic Acid 1.4 mmol/L (0.5-2.2) 11/19/23 20:19 Calcium 9.1 mg/dL (8.5-10.5) 11/21/23 02:44 Phosphorus 2.9 mg/dL (2.5-4.5) 11/20/23 05:10 Magnesium 1.8 mg/dL (1.7-2.3) 11/20/23 05:10 Total Bilirubin 0.7 mg/dL (0.15-1.2) 11/19/23 11:50 AST 39 U/L (0-40) 11/19/23 11:50 ALT 64 U/L (0-41) H 11/19/23 11:50 Alkaline Phosphatase 95 U/L (40-130) 11/19/23 11:50 Troponin T Baseline 11 ng/L (0-15) 11/19/23 11:50 Troponin T 120 Minute 10.31 ng/L (0-15) 11/19/23 13:49 Delta Troponin T -0.69 ABS# (0-10) L 11/19/23 13:49 Troponin T Hi Sens 6Hr 8.42 ng/L (0-15) 11/19/23 17:51 Troponin T Hi Sens 6Hr Delta -2.58 ng/L (0-12) L 11/19/23 17:51 C-Reactive Protein 126.2 mg/L (0.0-4.9) H 11/20/23 05:10 NT-Pro-B Natriuret Pep 41 pg/mL (0-125) 11/19/23 11:50 Total Protein 7.9 g/dL (6.6-8.7) 11/19/23 11:50 Albumin 4.5 g/dL (3.5-5.2) 11/19/23 11:50 Globulin 3.4 g/dL (1.3-4.6) 11/19/23 11:50 Procalcitonin 0.16 ng/mL (0-0.5) 11/19/23 11:50 TSH 0.45 uIU/mL (0.27-4.20) 11/19/23 13:49 Vitals Last Vital Signs Temp 98.1 F 11/21/23 08:00 Pulse 89 11/21/23 08:00 Resp 16 11/21/23 08:00 BP 98/61 11/21/23 08:00 Pulse Ox 91 11/21/23 08:00 O2 Del Method Room Air 11/21/23 08:00 O2 Flow Rate 2 11/20/23 08:17 Discharge Plan Discharge Patient Disposition: Home Condition: Stable Prescriptions: New doxycycline hyclate 100 mg tablet 100 mg PO BID 7 Days Qty: 14 0RF amoxicillin-pot clavulanate 875-125 mg tablet 1 tab PO BID Qty: 14 0RF ipratropium-albuterol 0.5 mg-3 mg(2.5 mg base)/3 mL solution for nebulization 3 ml inhalation Q8H PRN (Reason: shortness of breath or wheezing) Qty: 90 2RF Continued acetaminophen 325 mg Tablet 325 mg PO Q4H PRN (Reason: pain or fever) cetirizine 10 mg Tablet 10 mg PO DAILY PRN (Reason: allergies) Throat Lozenges 2.4 mg Lozenge 1 tara MUCOUS MEMBRANE Q2H PRN (Reason: Sore Throat) albuterol sulfate 90 mcg/actuation Hfa Aerosol Inhaler 2 inh INHALATION Q6H PRN (Reason: Shortness Of Breath) fluticasone propionate [Flonase] 50 mcg/actuation [place],Suspension 2 spray INTRANASAL QAM Rx Instructions: administer into each nostril Dilacor XR 180 mg Capsule,Ext.Rel 24h Degradable 180 mg PO BEDTIME fenofibrate nanocrystallized 145 mg Tablet 145 mg PO QAM Creon 24,000-76,000 -120,000 unit Capsule,Delayed Release(Dr/Ec) 2 cap PO TID Rx Instructions: administer with meals and/or snacks ondansetron HCl 8 mg Tablet 8 mg PO Q6H PRN (Reason: nausea or vomiting) insulin aspart U-100 100 unit/mL Solution 100 unit SUBCUT PRN pantoprazole [address] For Susp In Packet 40 mg PO QAM Spiriva Respimat 2.5 mcg/actuation Mist 2 puff INHALATION QAM Qty: 4 4RF Held chlorthalidone 25 mg Tablet 25 mg PO QAM Hold Instructions: Resume on 11/23/23. losartan 50 mg Tablet 75 mg PO BEDTIME Hold Instructions: Resume on 11/23/23. Discontinued Levaquin 500 mg Tablet 500 mg PO DAILY Discharge Orders: Discharge Order (Routine); Ordered 11/21/23 Ordered By: Carlos Man Other Ambulatory Orders: DME: Nebulizer with Neb Kit (Order) Location: None Selected Ordered By: Carlso Man Patient Instructions: Opioid Safety Activity Restrictions/Additional Instructions: Please hold your blood pressure medications if your blood pressure stays below 130/80 mmHg You do not need to take chlorthalidone with combination of losartan on daily basis if blood pressure stays controlled with 1 medication I have given you antibiotics for 7 days along with albuterol/ipratropium nebs Discharge Attestations Time Spent in Discharge Care*: greater than 30 min Quality Metrics Clinical Quality Measures [ No reported AMI, CVA or VTE this stay] Coding Level of Care Code Acute Code for [facility] Diagnoses Diabetes E11.9 Hospital-acquired pneumonia J18.9; Y95
[2023-11-21] MEDS: levoFLOXacin 500 mg Tablet 750 MG PO (09:30)
[2023-11-21] MEDS: sennosides-docusate Tablet 1 TAB PO (09:30)
== END 2023-11-21 11:03 | disposition home or self-care (01) | DRG 195 ==
LOC: ER 11:43 → MEDSURG 16:34
PROVIDERS: Admitting Provider Internal Medicine; Emergency Provider Emergency Medicine; PCP Family Medicine; Visit Provider Internal Medicine
DX: J18.9 Pneumonia, unspecified organism (principal); E11.9 Type 2 diabetes mellitus without complications; Z79.4 Long term (current) use of insulin; K76.0 Fatty (change of) liver, not elsewhere classified; K44.9 Diaphragmatic hernia without obstruction or gangrene; I10 Essential (primary) hypertension; Z87.891 Personal history of nicotine dependence; E87.6 Hypokalemia; Z86.39 Personal history of other endocrine, nutritional and metabolic disease; Z96.89 Presence of other specified functional implants
CPT/HCPCS: 36415; 71045; 71275; 80048; 80053; 83605; 83735; 83880; 84100; 84145; 84443; 84484; 85025; 85610; 86140; 87040; 87070; 87205; 93005; 93306; 94640; 94760; 96365; 99285; J1170; J1956; J2020; J2405; J2543; J7030; J7608; Q9967

== ENCOUNTER 2024-01-11 06:00 | Outpatient (RCR) | payer OTHER, SELFPAY | END 2024-01-12 23:59 | disposition home or self-care (01) | LOC: APT 06:00 | PROVIDERS: PCP Family Medicine; Visit Provider Family Medicine | DX: M54.42 Lumbago with sciatica, left side (principal) | CPT/HCPCS: 97161 ==

== ENCOUNTER → 2024-01-12 08:03 | Outpatient (BNVA) | payer OTHER, SELFPAY | PROVIDERS: PCP Family Medicine; Visit Provider Internal Medicine | DX: E10.9 Type 1 diabetes mellitus without complications (principal); E78.2 Mixed hyperlipidemia; Z87.19 Personal history of other diseases of the digestive system; K31.84 Gastroparesis; Z79.4 Long term (current) use of insulin | CPT/HCPCS: 99204 ==

== ENCOUNTER 2024-01-13 06:00 | Outpatient (RCR) | payer OTHER, SELFPAY | END 2024-02-12 23:59 | disposition home or self-care (01) | LOC: APT 06:00 | PROVIDERS: PCP Family Medicine; Visit Provider Family Medicine | DX: M54.42 Lumbago with sciatica, left side (principal) | CPT/HCPCS: 97110; 99204 ==

== ENCOUNTER 2024-01-19 06:00 | Day surgery (SDC) | payer OTHER, SELFPAY ==
[2024-01-19] VITALS (10 sets, daily range): BP systolic 101–131; BP diastolic 70–84; PULSE 72–86; RESP 16–20; TEMP 36.2–36.6; O2SAT 92–97; BMI 30.2
[2024-01-19] MEDS: sodium chloride 0.9% 1,000 ML 30 ML IV (06:27)
[2024-01-19 06:33] LABS: Glucose Point of Care 185 mg/dL (70-110)
--- NOTE | 2024-01-19 06:44 | W.PM.OPSUD ---
Surgery/Procedure H&P Update DATE OF PROCEDURE: January 19, 2024 DATE H&P PERFORMED: 01/13/24 H&P UPDATE INFORMATION: I have reviewed H&P completed within last 30 days, I have examined patient prior to procedure, No changes to prior documentation and H&P is in [facility] EMR on date indicated PLANNED PROCEDURE: Operation Date: 01/19/24 07:00 Proposed Procedures p EGD 14844, 18606, G0105, Z12.11 , K22.10(Not Applicable) - Edwin Galindo MD s Colonoscopy(Not Applicable) - Edwin Galindo MD
--- NOTE | 2024-01-19 06:57 | ANES.PREANE2 ---
Pre-Anesthetic Assessment Height/Weight: Height 1.8 m Weight 98.43 kg Temp Pulse Resp BP Pulse Ox O2 Del Method 97.2 F L 86 18 111/82 97 Room Air 01/19/24 06:20 01/19/24 06:20 01/19/24 06:20 01/19/24 06:20 01/19/24 06:20 01/19/24 06:20 Preop Diagnosis: Hong's esophagitis Operation Date: 01/19/24 07:00 Proposed Procedures p EGD 77734, 48171, G0105, Z12.11 , K22.10(Not Applicable) - Edwin Galindo MD s Colonoscopy(Not Applicable) - Edwin Galindo MD Was Beta Nicolle taken within 24 hours: Yes Was Clonidine taken within 24 hours: N/A Last intake: Intake Last Liquid Date 01/18/24 Last Liquid Time 20:00 Last Solid Date 01/17/24 Last Solid Time 19:00 Social No alcohol and No tobacco Exam alert, oriented x 3, clear to auscultation bilaterally and regular rate & rhythm Airway Submandibular: within normal limits Cervical ROM: within normal limits Mallampati: Class II Dentition: false History/ROS No significant history except as noted and No significant complaints Pulmonary Chronic Obstructive Pulmonary Disease CV/HEM Hypertension None reported Hepatic None reported GI Gastroesophageal Reflux Disease Metabolic Diabetes Mellitus [facility] None reported Neuropsych None reported Anesthetic Plan ASA status: 3 Anesthesia: Anesthesia Evaluation and General Risk of > 500 ml blood loss (7ml/kg in children): No Medications/Allergies Home Medications Medication Instructions Recorded Confirmed Last Taken Type acetaminophen 325 mg tablet 325 mg PO Q4H PRN pain or fever 11/19/23 01/15/24 01/15/24 History albuterol sulfate 90 mcg/actuation 2 inh inhalation Q6H PRN Shortness 11/19/23 01/15/24 01/15/24 History aerosol inhaler Of Breath chlorthalidone 25 mg tablet 25 mg PO QAM 11/19/23 01/15/24 01/19/24 History diltiazem HCl 180 mg 180 mg PO BEDTIME 11/19/23 01/15/24 01/18/24 History capsule,extended release 24 hr, controlled fluticasone propionate 50 2 spray intranasal QAM 11/19/23 01/15/24 01/18/24 History mcg/actuation nasal spray,suspension hexylresorcinol 2.4 mg lozenges 1 tara mucous membrane Q2H PRN Sore 11/19/23 01/19/24 Unknown History Throat [id number]-[id number] 2 cap PO TID 11/19/23 01/15/24 01/18/24 History 24,000-76,000-120,000 unit capsule,delayed rel (Creon) losartan 50 mg tablet 75 mg PO BEDTIME 11/19/23 01/15/24 01/18/24 History ondansetron HCl 8 mg tablet 8 mg PO Q6H PRN nausea or vomiting 11/19/23 01/15/24 01/15/24 History ipratropium 0.5 mg-albuterol 3 mg 3 ml inhalation Q8H PRN shortness 11/21/23 01/15/24 01/15/24 Rx (2.5 mg base)/3 mL nebulization of breath or wheezing #90 mL soln blood-glucose meter,continuous #1 ea 01/12/24 01/15/24 01/15/24 Rx (Dexcom G6 [employer]) blood-glucose sensor (Dexcom G6 #9 ea 01/12/24 01/15/24 01/15/24 Rx Sensor device) blood-glucose transmitter (Dexcom #1 ea 01/12/24 01/15/24 01/15/24 Rx G6 Transmitter device) infusion set for insulin pump #90 ea 01/12/24 01/15/24 01/15/24 Rx (AutoSoft XC Infusion Set 23 ) insulin aspart U-100 100 unit/mL 300 unit (3 mL) SUBCUT .COMPLEX 01/12/24 01/15/24 01/18/24 Rx subcutaneous solution #270 mL insulin pump cartridge (t:slim X2 #90 ea 01/12/24 01/15/24 01/15/24 Rx subcutaneous cartridge) omeprazole 20 mg capsule,delayed 20 mg PO BID 01/15/24 01/15/24 01/19/24 History release tiotropium bromide 2.5 2 puff inhalation QAM PRN 01/15/24 01/15/24 01/15/24 History mcg/actuation mist for inhalation Shortness Of Breath (Spiriva Respimat) Allergies Allergy/AdvReac Type Severity Reaction Status Date / Time clonidine Allergy ADR-Numbnes Verified 01/15/24 11:52 s pneumococcal vaccine Allergy ALGY-Fever Verified 01/15/24 11:52 flu vaccine Allergy ALGY-Fever Uncoded 01/15/24 11:56 Current Medications Generic Name Dose Route Start Last Admin Trade Name Freq PRN Reason Stop Dose Admin Sodium Chloride 1,000 mls @ 30 mls/hr 01/19/24 06:15 01/19/24 06:27 Sodium Chloride 0.9% IV 30 mls/hr .Q24H MANNY Administration PFSH Anesthesia Medical History (Updated 01/13/24 @ 08:53 by Edwin Galindo MD) Hospital-acquired pneumonia Aspiration pneumonia Hypertension Diabetes Presence of pancreatic duct stent Pancreatitis, necrotizing Surgical History (Updated 01/13/24 @ 08:00 by JAMES Andre) History of cholecystectomy History of biliary duct stent placement Family History (Updated 01/13/24 @ 08:01 by JAMES Andre) Mother Cancer lung cancer Father Cancer Social History Smoking and tobacco/nicotine status: former use of tobacco/nicotine Alcohol intake: never Data Anesthesia Cardiac Studies: Echocardiogram 11/19/23
--- NOTE | 2024-01-19 09:00 | ANE.PACU2 ---
Inpatient post-anesthesia follow up: Airway intact: Yes Vital signs: Temperature 97.7 F Pulse Rate 72 Respiratory Rate 16 Blood Pressure 101/70 Pulse Oximetry 96 Oxygen Delivery Me thod Room Air Oxygen Flow Rate Fraction of Inspir ed Oxygen Hydration adequate: Yes Nausea and vomiting: No Pain level: 1 Mental status: Baseline
== END 2024-01-19 09:03 | disposition home or self-care (01) ==
PROVIDERS: PCP Family Medicine; Visit Provider Surgery
PROC: 0DJ08ZZ Inspection of Upper Intestinal Tract, Via Natural or Artificial Opening Endoscopic (ICD-10-PCS; CPT 43235; principal; 2024-01-19 07:00)
PROC: 0DJD8ZZ Inspection of Lower Intestinal Tract, Via Natural or Artificial Opening Endoscopic (ICD-10-PCS; CPT 45378; 2024-01-19 07:00)
DX: Z12.11 Encounter for screening for malignant neoplasm of colon (principal); K29.50 Unspecified chronic gastritis without bleeding; K21.00 Gastro-esophageal reflux disease with esophagitis, without bleeding; K22.70 Barrett's esophagus without dysplasia; J44.9 Chronic obstructive pulmonary disease, unspecified; I10 Essential (primary) hypertension; E11.9 Type 2 diabetes mellitus without complications; Z79.4 Long term (current) use of insulin; Z87.891 Personal history of nicotine dependence
CPT/HCPCS: 36416; 43239; 45378; 82962; 88305; J0330; J2405; J2704; J7030

== ENCOUNTER → 2024-02-03 14:03 | Outpatient (BNVA) | payer OTHER, SELFPAY | PROVIDERS: PCP Family Medicine; Visit Provider Surgery | DX: Z09 Encounter for follow-up examination after completed treatment for conditions other than malignant neoplasm (principal) | CPT/HCPCS: 99213 ==

== ENCOUNTER 2024-02-13 06:00 | Outpatient (RCR) | payer OTHER, SELFPAY | END 2024-03-13 23:59 | disposition home or self-care (01) | LOC: APT 06:00 | PROVIDERS: PCP Family Medicine; Visit Provider Family Medicine | DX: M54.42 Lumbago with sciatica, left side (principal) | CPT/HCPCS: 97110 ==

== ENCOUNTER 2024-04-07 09:23 | Outpatient (CLI) | payer OTHER, SELFPAY ==
[2024-04-07 10:19] LABS: Creatinine Urine, Random 127 mg/dL (39-259); Microalbum Creatinine Ratio Ur 8 mg/dL (0-20); Microalbumin Random Urine 1 ug/dL (0-20)
[2024-04-07 10:22] LABS: Alanine Aminotransferase 53 U/L (0-41); Albumin Level 4.3 g/dL (3.5-5.2); Alkaline Phosphatase 100 U/L (40-130); Anion Gap 14.7 (5-19); Aspartate Amino Transferase 34 U/L (0-40); Blood Urea Nitrogen 13 mg/dL (6-20); Calcium 9.6 mg/dL (8.5-10.5); Carbon Dioxide 26 mmol/L (22-29); Chloride 101 mmol/L (98-107); Cholesterol 112 mg/dL (0-200); Globulin 3.7 g/dL (1.3-4.6); Glomerular Filtration Rate 89.3 mL/min (90-130); Glucose 89 mg/dL (65-115); HDL Cholesterol 28 mg/dL (60-100); LDL Cholesterol Calculated 56 mg/dL (50-129); Osmolality Calculated 286 mOsm/kg (285-295); Potassium 3.7 mmol/L (3.5-5.1); Sodium 138 mmol/L (136-145); Total Bilirubin 0.3 mg/dL (0.15-1.2); Triglycerides 138 mg/dL (0-150)
[2024-04-07 10:24] LABS: Estmated Average Glucose 194; Hemoglobin A1C 8.4 % (4.0-6.0)
== END 2024-04-07 09:24 | disposition home or self-care (01) ==
LOC: LAB 09:24
PROVIDERS: PCP Family Medicine; Visit Provider Internal Medicine
DX: E10.9 Type 1 diabetes mellitus without complications (principal); E78.2 Mixed hyperlipidemia
CPT/HCPCS: 36415; 80053; 80061; 82044; 83036

== ENCOUNTER → 2024-04-13 08:14 | Outpatient (BNVA) | payer OTHER, SELFPAY | PROVIDERS: PCP Family Medicine; Visit Provider Internal Medicine | DX: E10.9 Type 1 diabetes mellitus without complications (principal); E78.2 Mixed hyperlipidemia; Z87.19 Personal history of other diseases of the digestive system; Z79.4 Long term (current) use of insulin | CPT/HCPCS: 99214 ==

== ENCOUNTER 2024-04-29 21:12 | Emergency (ER) | payer OTHER, SELFPAY ==
--- NOTE | 2024-04-29 21:29 | XRR_ITS ---
PROCEDURE INFORMATION: Exam: XR Chest Exam date and time: 04/29/2024 9:47 PM Age: 48 years old Clinical indication: Fever and shortness of breath; Patient HX: Fever with SOB TECHNIQUE: Imaging protocol: Radiologic exam of the chest. Views: 1 view. COMPARISON: CT angio chest PE protcl [id number] 11/19/2023 12:16 PM FINDINGS: Lungs: Unremarkable. No consolidation. Pleural spaces: Unremarkable. No pleural effusion. No pneumothorax. Heart/Mediastinum: Unremarkable. No cardiomegaly. Bones/joints: Unremarkable. XR/XR chest 1V portable [id number] IMPRESSION: No acute findings.
[2024-04-29 21:43] VITALS: BP 123/71; PULSE 115; RESP 16; TEMP 37; O2SAT 95; BMI 31.0
[2024-04-29 21:50] LABS: Basophils % 0.1 %; Eosinophils # 0.1 10^3/uL (0.0-0.8); Eosinophils % 0.9 %; Hematocrit 42.5 % (37-53); Lymphocytes % 10.8 %; Mean Corpuscular HGB Conc 32.7 g/dL (30-55); Mean Corpuscular Hemoglobin 26.3 pg (27-33); Mean Corpuscular Volume 80.5 fl (82-101); Mean Platelet Volume 8.8 fL (7.4-10.4); Monocytes # 0.7 10^3/uL (0.2-0.9); Neutrophils # 7.47 10^3/uL (1.8-7.7); Neutrophils % 80.6 %; Nucleated Red Blood Cells % 0 %; Platelet Count 210 10^3/cmm (157-399); Red Blood Count 5.28 10^6/uL (3.85-5.65); Red Cell Distribution Width 13.8 % (12.1-15.1); White Blood Count 9.27 10^3/uL (3.29-11.43)
[2024-04-29 22:08] LABS: Alanine Aminotransferase 50 U/L (0-41); Albumin Level 4.2 g/dL (3.5-5.2); Alkaline Phosphatase 94 U/L (40-130); Aspartate Amino Transferase 34 U/L (0-40); Blood Urea Nitrogen 19 mg/dL (6-20); C Reactive Protein 14.5 mg/L (0.0-4.9); Calcium 9.1 mg/dL (8.5-10.5); Carbon Dioxide 23 mmol/L (22-29); Chloride 102 mmol/L (98-107); Creatinine Clr Calc Pharmacy 94.3895; Globulin 3.5 g/dL (1.3-4.6); Glomerular Filtration Rate 70.9 mL/min (90-130); Glucose 128 mg/dL (65-115); Osmolality Calculated 292 mOsm/kg (285-295); Sodium 139 mmol/L (136-145); Total Bilirubin 0.4 mg/dL (0.15-1.2); Total Protein 7.7 g/dL (6.6-8.7)
[2024-04-29 22:09] LABS: Lactic Sepsis W/Reflex 1.6 mmol/L (0.5-2.2)
[2024-04-29 22:15] LABS: Procalcitonin 0.33 ng/mL (0-0.5)
--- NOTE | 2024-04-29 22:54 | ED_ITS ---
HPI - Fever 2 General: Chief Complaint: Fever Stated Complaint: SOB,FEVER Time Seen by Provider: 04/29/24 21:27 History of Present Illness: 48-year-old man with a history of necrot izing pancreatitis who now has biliary and pancreatic stents that he had replaced a few days back. He says every time he has these replaced he gets sick. He says he had pneumonia and sepsis in the past. Today's been had some fevers at home. He is currently afebrile. On presentation he was slightly tachycardic but has slowed down. He is normotensive. Slightly short of breath he says. No abdominal pain. No nausea or vomiting. No altered mental status. No focal motor deficits. Related Data Home Medications Medication Instructions Recorded Confirmed acetaminophen 325 mg tablet 325 mg PO Q4H PRN pain or fever 11/19/23 04/13/24 albuterol sulfate 90 mcg/actuation 2 inh inhalation Q6H PRN Shortness 11/19/23 04/13/24 aerosol inhaler Of Breath chlorthalidone 25 mg tablet 25 mg PO QAM 11/19/23 04/13/24 diltiazem HCl 180 mg 180 mg PO BEDTIME 11/19/23 04/13/24 capsule,extended release 24 hr, controlled fluticasone propionate 50 2 spray intranasal QAM 11/19/23 04/13/24 mcg/actuation nasal spray,suspension [id number] 2 cap PO TID 11/19/23 04/13/24 24,000-76,000-120,000 unit capsule,delayed rel (Creon) losartan 50 mg tablet 75 mg PO BEDTIME 11/19/23 04/13/24 ondansetron HCl 8 mg tablet 8 mg PO Q6H PRN nausea or vomiting 11/19/23 04/13/24 omeprazole 20 mg capsule,delayed 20 mg PO BID 01/15/24 04/13/24 release Previous Rx's Medication Instructions Recorded blood-glucose meter,continuous #1 ea 01/12/24 (Dexcom G6 Trench Shovel Operator) blood-glucose transmitter (Dexcom #1 ea 01/12/24 G6 Transmitter device) infusion set for insulin pump #90 ea 01/12/24 (AutoSoft XC Infusion Set 23 ) insulin aspart U-100 100 unit/mL 300 unit (3 mL) SUBCUT .COMPLEX 01/12/24 subcutaneous solution #270 mL insulin pump cartridge (t:slim X2 #90 ea 01/12/24 subcutaneous cartridge) blood-glucose sensor (Dexcom G6 #3 ea 03/15/24 Sensor device) doxycycline monohydrate 100 mg 100 mg PO BID 10 days #20 caps 04/29/24 capsule Allergies Allergy/AdvReac Type Severity Reaction Status Date / Time clonidine Allergy ADR-Numbnes Verified 04/13/24 07:22 s pneumococcal vaccine Allergy ALGY-Fever Verified 04/13/24 07:22 flu vaccine Allergy ALGY-Fever Uncoded 04/13/24 07:22 Review of Systems 2 Narrative: Constitutional symptoms: Negative except as documented in HPI. Skin symptoms: Negative except as documented in HPI. Eye symptoms: Negative except as documented in HPI. ENMT symptoms: Negative except as documented in HPI. Respiratory symptoms: Negative except as documented in HPI. Cardiovascular symptoms: Negative except as documented in HPI. Gastrointestinal symptoms: Negative except as documented in HPI. Genitourinary symptoms: Negative except as documented in HPI. Musculoskeletal symptoms: Negative except as documented in HPI. Neurologic symptoms: Negative except as documented in HPI. Psychiatric symptoms: Negative except as documented in HPI. Endocrine symptoms: Negative except as documented in HPI. PFSH ED 2 PFSH: Medical History Hospital-acquired pneumonia Aspiration pneumonia Hypertension Diabetes Presence of pancreatic duct stent Pancreatitis, necrotizing Surgical History History of cholecystectomy History of biliary duct stent placement Family History Mother Cancer lung cancer Father Cancer Social History Smoking and tobacco/nicotine status: never used tobacco/nicotine Alcohol intake: never Physical Exam 2 Narrative: EXAM NARRATIVE: General: Alert, no acute distress. Skin: Warm, dry. Head: Normocephalic, atraumatic. Neck: Supple, trachea midline. Eye: Extraocular movements are intact. Ears, nose, mouth and throat: mucosa moist. Cardiovascular: Regular, Normal peripheral perfusion. Respiratory: Lungs are clear to auscultation, respirations are non-labored, breath sounds are equal, Symmetrical chest wall expansion. Gastrointestinal: Soft, Nontender, Non distended Musculoskeletal: Normal ROM, no deformity. Neurological: Alert and oriented, No focal neurological deficit observed. Psychiatric: Cooperative, appropriate mood & affect. Course 2 Vital Signs: Vital signs: Vital Signs Temperature 98.6 F 04/29/24 21:43 Pulse Rate 94 04/29/24 23:37 Respiratory Rate 16 04/29/24 21:43 Blood Pressure 124/74 04/29/24 23:37 Pulse Oximetry 96 04/29/24 23:37 Oxygen Delivery Me thod Room Air 04/29/24 21:43 MDM - Fever Medical Decision Making Differential diagnosis for patient with fever and cough includes but is not limited to and based on the above HPI, review of systems and physical exam: Pneumonia. Bronchitis. Asthma or COPD with acute exacerbation. Acute coronary syndrome / NM. Pulmonary embolism. Anxiety. Congestive heart failure. Viral infections including influenza and Covid-19. Atrial fibrillation. Anxiety. Pleural effusion. Pneumothorax. Workup: Lab work, chest X-ray and EKG ordered to evaluate, rule in and rule out above pathologies Chest x-ray: No acute process. No infiltrate. No pneumothorax. This was reviewed and interpreted by myself the ER physician. Lab Review: Laboratory results were reviewed and interpreted by myself the emergency room physician. White count is 9000. Hemoglobin is normal at 13.9. BUN and creatinine are stable at 19 and 1.1. Sugars 128. Lactate is negative. LFTs are normal. CRP is slightly elevated at 14 Sepsis alert: There was a sepsis alert. I believe this was secondary to heart rate of 115. No evidence of sepsis. No obvious pneumonia on x-ray. No leukocytosis. No elevation in his lactate. I reviewed the patient's medical record. Reexamination: Patient remained stable. No increased work of breathing. No altered mental status. No focal motor deficits. Assessment and plan: Upper respiratory infection Dehydration ?IV Rocephin and IV azithromycin. Treating given his history. I do not believe he is septic and I do not see an obvious pneumonia. Home on doxycycline ?1 L normal saline bolus. BN and creatinine are slightly elevated and heart rate was elevated initially. - Discharged home - Discussed findings and plan with patient. Answered any questions. - All laboratory values were reviewed and interpreted personally by myself, the ER physician - All imaging was reviewed and interpreted personally by myself, the ER physician. - Evaluation and treatment of this problem were appropriate in the emergency setting Lab Data 04/29/24 21:43 04/29/24 21:43 Radiology Impressions Chest X-Ray 04/29/24 21:29 IMPRESSION: No acute findings. Laboratory Results WBC 9.27 10^3/uL (3.29-11.43) 04/29/24 21:43 RBC 5.28 10^6/uL (3.85-5.65) 04/29/24 21:43 Hgb 13.90 g/dL (11.27-16.99) 04/29/24 21:43 Hct 42.5 % (37-53) 04/29/24 21:43 MCV 80.5 fl (82-101) L 04/29/24 21:43 MCH 26.3 pg (27-33) L 04/29/24 21:43 MCHC 32.7 g/dL (30-55) 04/29/24 21:43 RDW 13.8 % (12.1-15.1) 04/29/24 21:43 Plt Count 210 10^3/cmm (157-399) 04/29/24 21:43 MPV 8.8 fL (7.4-10.4) 04/29/24 21:43 Neut % (Auto) 80.6 % 04/29/24 21:43 Lymph % (Auto) 10.8 % 04/29/24 21:43 Jones % (Auto) 7.0 % 04/29/24 21:43 Eos % (Auto) 0.9 % 04/29/24 21:43 Baso % (Auto) 0.1 % 04/29/24 21:43 Neut # (Auto) 7.47 10^3/uL (1.8-7.7) 04/29/24 21:43 Lymph # (Auto) 1.0 10^3/uL (0.8-4.8) 04/29/24 21:43 Jones # (Auto) 0.7 10^3/uL (0.2-0.9) 04/29/24 21:43 Eos # (Auto) 0.1 10^3/uL (0.0-0.8) 04/29/24 21:43 Baso # (Auto) 0.0 10^3/uL (0.0-0.1) 04/29/24 21:43 Nucleated RBC % (auto) 0 % 04/29/24 21:43 Nucleated RBCs # 0.0 /100WBC 04/29/24 21:43 Sodium 139 mmol/L (136-145) 04/29/24 21:43 Potassium 4.0 mmol/L (3.5-5.1) 04/29/24 21:43 Chloride 102 mmol/L (98-107) 04/29/24 21:43 Carbon Dioxide 23 mmol/L (22-29) 04/29/24 21:43 Anion Gap 18.0 (5-19) 04/29/24 21:43 BUN 19 mg/dL (6-20) 04/29/24 21:43 Creatinine 1.1 mg/dL (0.7-1.2) 04/29/24 21:43 GFR Calculation 70.9 mL/min (90-130) L 04/29/24 21:43 Glucose 128 mg/dL (65-115) H 04/29/24 21:43 Calculated Osmolality 292 mOsm/kg (285-295) 04/29/24 21:43 Lactic Acid 1.6 mmol/L (0.5-2.2) 04/29/24 21:43 Calcium 9.1 mg/dL (8.5-10.5) 04/29/24 21:43 Total Bilirubin 0.4 mg/dL (0.15-1.2) 04/29/24 21:43 AST 34 U/L (0-40) 04/29/24 21:43 ALT 50 U/L (0-41) H 04/29/24 21:43 Alkaline Phosphatase 94 U/L (40-130) 04/29/24 21:43 C-Reactive Protein 14.5 mg/L (0.0-4.9) H 04/29/24 21:43 Total Protein 7.7 g/dL (6.6-8.7) 04/29/24 21:43 Albumin 4.2 g/dL (3.5-5.2) 04/29/24 21:43 Globulin 3.5 g/dL (1.3-4.6) 04/29/24 21:43 Procalcitonin 0.33 ng/mL (0-0.5) 04/29/24 21:43 All radiology interpretation(s) finalized by discharge Discharge Plan Discharge Patient Disposition: Home Clinical Impression: Upper respiratory infection Condition: Stable Prescriptions: New doxycycline monohydrate 100 mg capsule 100 mg PO BID 10 Days Qty: 20 0RF No Action (DME) Dexcom G6 Trench Shovel Operator Misc See Rx Instructions .Route Qty: 1 0RF Rx Instructions: As directed (DME) Dexcom G6 Transmitter Device See Rx Instructions .Route Qty: 1 1RF Rx Instructions: As directed (DME) AutoSoft XC Infusion Set 23 Infusion Set See Rx Instructions .Route Qty: 90 3RF Rx Instructions: As directed (DME) t:slim X2 Cartridge See Rx Instructions .Route Qty: 90 3RF Rx Instructions: As directed insulin aspart U-100 100 unit/mL solution 300 unit SUBCUT .COMPLEX Qty: 270 3RF Rx Instructions: 300 units subcutaneously via T slim pump daily; (DME) Dexcom G6 Sensor Device See Rx Instructions .ROUTE .COMPLEX Qty: 3 6RF Dose Instruction: USE 1 SENSOR UNDER THE SKIN EVERY 10 DAYS CHANGE SENSOR/SITE EVERY 10 DAYS. CONTACT [employer] AT FOR REPLACEMENT OF DAMAGED/MALFUNCTIONING SENSORS. Rx Instructions: change sensor every 10days acetaminophen 325 mg Tablet 325 mg PO Q4H PRN (Reason: pain or fever) chlorthalidone 25 mg Tablet 25 mg PO QAM Hold Instructions: Resume on 11/23/23. albuterol sulfate 90 mcg/actuation Hfa Aerosol Inhaler 2 inh INHALATION Q6H PRN (Reason: Shortness Of Breath) fluticasone propionate 50 mcg/actuation [place],Suspension 2 spray INTRANASAL QAM Rx Instructions: administer into each nostril diltiazem HCl 180 mg Capsule,Ext.Rel 24h Degradable 180 mg PO BEDTIME Creon 24,000-76,000 -120,000 unit Capsule,Delayed Release(Dr/Ec) 2 cap PO TID Rx Instructions: administer with meals and/or snacks losartan 50 mg Tablet 75 mg PO BEDTIME Hold Instructions: Resume on 11/23/23. ondansetron HCl 8 mg Tablet 8 mg PO Q6H PRN (Reason: nausea or vomiting) omeprazole 20 mg Capsule,Delayed Release(Dr/Ec) 20 mg PO BID Discharge Orders: Discharge ED (Routine); Ordered 04/29/24 Ordered By: Suki Franco Referrals: Sharon Canales MD [Primary Care Provider] - Discharge Diet: Usual diet Discharge Activity: Increase activity as tolerated Patient Instructions: Upper Respiratory Infection (ED) Activity Restrictions/Additional Instructions: Thank you for choosing [facility] for your healthcare needs today. Please realize this is an emergency room and that we are providing you with a medical screening exam and this may not be complete and all inclusive of all the testing and or work up that you may need to determine your ailment or severity of your illness. You have been screened and evaluated and felt safe for discharge. Health conditions do change or evolve sometimes and as such it is important that you follow up with your Primary Doctor to be re checked, 3-5 days is a general good time frame for follow up. You are always welcome to return to the ED for re assessment if your symptoms are worsening or you have new concerns Coding Level of Care Code ED Senior Interaction Designer for [employer]
[2024-04-29] MEDS: azithromycin 500 MG in sodium chloride 0.9% 250 ML 250 MG IV (23:27)
[2024-04-29] MEDS: sodium chloride 0.9% 1,000 ML 999 ML IV (23:27)
[2024-04-29] MEDS: cefTRIAXone 1,000 mg SDV 1000 MG IVP (23:31)
[2024-04-29 23:37] VITALS: BP 124/74; PULSE 94; O2SAT 96
[2024-04-30 00:20] LABS: Adenovirus Not Detected (NOT DETECT); Chlamydia Pneumoniae Not Detected (NOT DETECT); Coronavirus 229E,HKU1,NL63,OC4 Not Detected (NOT DETECT); Human Metapneumovirus Not Detected (NOT DETECT); Human Rhinovirus/Enterovirus Not Detected (NOT DETECT); Influenza A Not Detected (NOT DETECT); Influenza A H1 Not Detected (NOT DETECT); Influenza A H1-2009 Not Detected (NOT DETECT); Influenza A H3 Not Detected (NOT DETECT); Influenza B Not Detected (NOT DETECT); Mycoplasma Pneumoniae Not Detected (NOT DETECT); Parainfluenza Virus Type 1 Not Detected (NOT DETECT); Parainfluenza Virus Type 2 Not Detected (NOT DETECT); Parainfluenza Virus Type 3 Not Detected (NOT DETECT); Parainfluenza Virus Type 4 Not Detected (NOT DETECT); Respiratory Syncytial Virus A Not Detected (NOT DETECT); Respiratory Syncytial Virus B Not Detected (NOT DETECT); SARS-COV-2 Not Detected (NOT DETECT)
[2024-04-30 01:01] VITALS: BP 157/67; PULSE 94; O2SAT 96
== END 2024-04-30 01:08 | disposition home or self-care (01) ==
PROVIDERS: Emergency Provider Emergency Medicine; PCP Family Medicine
DX: J06.9 Acute upper respiratory infection, unspecified (principal); Z79.4 Long term (current) use of insulin; I10 Essential (primary) hypertension; E11.9 Type 2 diabetes mellitus without complications
CPT/HCPCS: 36415; 71045; 80053; 83605; 84145; 85025; 86140; 87040; 87486; 87581; 87633; 96365; 96366; 96375; 99284; J0456; J0696; J7030; J7050

== ENCOUNTER → 2024-05-09 11:52 | Outpatient (BNVA) | payer OTHER, SELFPAY | PROVIDERS: PCP Family Medicine; Visit Provider Specialist | DX: Z01.818 Encounter for other preprocedural examination (principal) | CPT/HCPCS: 36415; 80053; 81003; 81015; 83036; 85025 ==

== ENCOUNTER 2024-06-09 06:44 | Day surgery (SDC) | payer OTHER, SELFPAY ==
[2024-06-09] VITALS (11 sets, daily range): BP systolic 120–166; BP diastolic 73–109; PULSE 57–75; RESP 16–20; TEMP 36.1–36.5; O2SAT 95–100
[2024-06-09] MEDS: sodium chloride 0.9% 1,000 ML 30 ML IV (07:05)
[2024-06-09] MEDS: acetaminophen 1,000 MG/100 ML PIGGYBACK 400 MG IV (07:08)
[2024-06-09] MEDS: CELEcoxib 200 mg Capsule 400 MG PO (07:09)
[2024-06-09] MEDS: gabapentin 300 mg Capsule PO (07:09)
--- NOTE | 2024-06-09 07:37 | P.HPUD_ITS ---
Surgery/Procedure H&P Update DATE OF PROCEDURE: June 09, 2024 DATE H&P PERFORMED: 05/31/24 H&P UPDATE INFORMATION: I have reviewed H&P completed within last 30 days, I have examined patient prior to procedure, No changes to prior documentation and H&P is in [facility] EMR on date indicated PLANNED PROCEDURE: Operation Date: 06/09/24 08:15 Proposed Procedures p Trigger Finger Release left index(Left) - Caroline Waldrop MD Related Problem List Diagnoses (1) Acquired trigger finger of left index finger:
[2024-06-09 07:48] LABS: Glucose Point of Care 118 mg/dL (70-110)
[2024-06-09 08:09] LABS: Glucose Point of Care 87 mg/dL (70-110)
[2024-06-09] MEDS: ceFAZolin 2,000 mg SDV 2000 MG IVP (08:12)
[2024-06-09] MEDS: BUPivacaine 0.5% INJ 30 mL INJECTION (08:39)
--- NOTE | 2024-06-09 08:58 | PM.OP ---
Operative Report Date of procedure: June 09, 2024 Pre-op diagnosis: Left index finger triggering Post-op diagnosis: Left index finger triggering Post-op findings: Significant thickening of the A1 david with reactive fluid Procedure done: Left index finger triggering release Specimens removed/disposition: None Pathology: None Surgeon: Caroline Waldrop MD Piano Accompanist: None Anesthesia: General (Intubated, ASA 3) Estimated blood loss (mL): 5 Tourniquet time (min): 4 (At 250 mmHg) IV fluids (mL): 400 Urine output (mL): 0 (No La) Complications: None Findings: Significant thickening of the A1 david Condition: stable Disposition: PACU (Then return to same-day surgery for discharge to home) Brief History: This 48-year-old gentleman presents today for release of index finger triggering on the left hand. He had had a few months of triggering, but now, at times, he has to manually pry his index finger open. He has mild complaints of pain even at rest. Risks and complications were discussed with him. Consents were signed and questions were answered preoperatively. Procedure: Patient was brought to the operating theater. He was placed on the operating room table. A general anesthetic, intubated, ASA 3 was administered without difficulty. Patient tolerated it well. Patient had to have his blood sugar addressed in the operating room as well secondary to a precipitous drop. He notes that this had previously happened with other surgeries. Ancef 2 g was administered prophylactically. A tourniquet was placed high on the arm and was elevated after exsanguination. Tourniquet time was 4 minutes at 250 mmHg. Surgical pause was performed prior to commencement of the surgical procedure. At the time of the surgical pause we identified the site and side of surgery. We also identified the patient's identity and appropriate administration of IV antibiotics. Following the surgical pause, an incision was made along the metacarpophalangeal crease of the index finger. Dissection continued through the skin to the subcutaneous tissues using a scalpel. Blunt dissection was then utilized to spread soft tissues and allow access to the A1 david. It was then incised longitudinally and sharply using a knife. This was accomplished without difficulty and atraumatically. Once the A1 david was released, tendons were brought up out of the wound and evaluated. There were no gross masses on the tendons. Tendons were returned to normal position. We then irrigated the wound and subsequently closed it with 3-0 nylon with an interrupted mattress type suture. Following closure of the wound, the wound was injected with bupivacaine plain into the subcutaneous tissues as a local anesthetic. Sterile dressing was then placed consisting of Dermabond, OpSite, fluffed fluffs, sterile soft roll, and an Devin wrap. The patient was returned to recovery in satisfactory condition. He will be discharged home to follow-up with me in the office. There were no complications and no specimens. Related Problem List Diagnoses (1) Acquired trigger finger of left index finger:
[2024-06-09 09:26] LABS: Glucose Point of Care 103 mg/dL (70-110)
--- NOTE | 2024-06-09 10:05 | ANE.PACU2 ---
Inpatient post-anesthesia follow up: Airway intact: Yes Vital signs: Temperature 97.6 F Pulse Rate 65 Respiratory Rate 18 Blood Pressure 126/74 Pulse Oximetry 97 Oxygen Delivery Me thod Room Air Oxygen Flow Rate 6 Fraction of Inspir ed Oxygen Hydration adequate: Yes Nausea and vomiting: No Pain level: 1 Mental status: Baseline
== END 2024-06-09 10:06 | disposition home or self-care (01) ==
PROVIDERS: PCP Family Medicine; Visit Provider Specialist
PROC: (CPT 26055; principal; 2024-06-09 08:05)
DX: M65.322 Trigger finger, left index finger (principal); I10 Essential (primary) hypertension; F17.200 Nicotine dependence, unspecified, uncomplicated; J44.9 Chronic obstructive pulmonary disease, unspecified; E78.5 Hyperlipidemia, unspecified; E10.43 Type 1 diabetes mellitus with diabetic autonomic (poly)neuropathy; K31.84 Gastroparesis; G47.33 Obstructive sleep apnea (adult) (pediatric); Z79.899 Other long term (current) drug therapy; Z79.4 Long term (current) use of insulin; Z96.41 Presence of insulin pump (external) (internal); Z88.8 Allergy status to other drugs, medicaments and biological substances; Z88.7 Allergy status to serum and vaccine
CPT/HCPCS: 26055; 36416; 82962; J0131; J0330; J0690; J1100; J2250; J2405; J2704; J3010; J3490; J7030

== ENCOUNTER → 2024-06-13 07:41 | Outpatient (BNVA) | payer OTHER, SELFPAY | PROVIDERS: PCP Family Medicine; Visit Provider Internal Medicine | DX: E10.9 Type 1 diabetes mellitus without complications (principal); E78.2 Mixed hyperlipidemia; Z87.19 Personal history of other diseases of the digestive system; Z79.4 Long term (current) use of insulin | CPT/HCPCS: 99214 ==

== ENCOUNTER → 2024-06-22 12:21 | Outpatient (BNVA) | payer OTHER, SELFPAY | PROVIDERS: PCP Family Medicine; Visit Provider Nurse Practitioner | DX: Z98.890 Other specified postprocedural states (principal); M65.322 Trigger finger, left index finger | CPT/HCPCS: 99024 ==

== ENCOUNTER 2024-07-04 19:24 | Emergency (ER) | payer OTHER, SELFPAY ==
[2024-07-04 19:30] VITALS: BP 118/75; PULSE 76; RESP 16; TEMP 36.4; O2SAT 97
[2024-07-04 19:58] VITALS: BP 130/77; PULSE 66; RESP 18; O2SAT 95
--- NOTE | 2024-07-04 20:02 | W.ED.WOUNDLC ---
HPI - Wound/Laceration General: Chief Complaint: Wound/Laceration Stated Complaint: right arm lac Time Seen by Provider: 07/04/24 19:29 Source: patient Mode of arrival: ambulatory Limitations: no limitations History of Present Illness: Patient is a 48-year-old male who presents to the emergency department with lacerations to right forearm. He states he injured this when his arm slipped and he cut an angle sample tester grinder. He reports his tetanus is up-to-date. Bleeding is controlled on arrival, there is mild contamination noted. No distal neurovascular deficits reported. Appears comfortable at this time with normal vitals, not reporting much pain. There are 3 lacerations in total, 1 superficial to the medial aspect of the elbow, the other 2 do appear to involve the adipose tissue with no muscle or tendon involvement. Onset (ago): hour(s) Extremity Location: Right: elbow and forearm Place: home Patient tetanus UTD: Yes Context: accidental Associated symptoms: Reports no associated symptoms; Denies chills, fever(s), nausea or vomiting Related Data Home Medications Medication Instructions Recorded Confirmed acetaminophen 325 mg tablet 325 mg PO Q4H PRN pain or fever 11/19/23 06/22/24 albuterol sulfate 90 mcg/actuation 2 inh inhalation Q6H PRN Shortness 11/19/23 06/22/24 aerosol inhaler Of Breath chlorthalidone 25 mg tablet 25 mg PO QAM 11/19/23 06/22/24 diltiazem HCl 180 mg 180 mg PO BEDTIME 11/19/23 06/22/24 capsule,extended release 24 hr, controlled fluticasone propionate 50 2 spray intranasal QAM 11/19/23 06/22/24 mcg/actuation nasal spray,suspension [id number] 2 cap PO TID 11/19/23 06/22/24 24,000-76,000-120,000 unit capsule,delayed rel (Creon) losartan 50 mg tablet 75 mg PO BEDTIME 11/19/23 06/22/24 omeprazole 20 mg capsule,delayed 20 mg PO BID 01/15/24 06/22/24 release turmeric (bulk) 95 % powder 1 ea miscellaneous DIRECTED 05/31/24 06/22/24 (Curcumin) Previous Rx's Medication Instructions Recorded infusion set for insulin pump #30 ea 06/21/24 ([facility] [place] Advance Infusion Set 23 ) insulin pump syringe 3 mL #30 ea 06/21/24 ([facility] [place]) blood-glucose sensor (Guardian 4 #15 ea 06/22/24 Glucose Sensor device) insulin aspart U-100 100 unit/mL 300 unit (3 mL) continuous 06/22/24 subcutaneous solution (Novolog subcutaneous infusion DAILY 90 U-100 Insulin aspart) days #270 mL rosuvastatin 10 mg tablet 10 mg PO DAILY #90 tabs 06/22/24 doxycycline hyclate 100 mg tablet 100 mg PO BID 10 days #20 tabs 07/04/24 Allergies Allergy/AdvReac Type Severity Reaction Status Date / Time clonidine Allergy ADR-Numbnes Verified 07/04/24 19:35 s pneumococcal vaccine Allergy ALGY-Fever Verified 07/04/24 19:35 flu vaccine Allergy ALGY-Fever Uncoded 07/04/24 19:35 Review of Systems General: Reports: 10 or more systems reviewed and unremarkable except in HPI and below Const: Denies: fever(s) or chills Card: Denies: chest pain Resp: Denies: dyspnea GI: Denies: abdominal pain, nausea, vomiting or diarrhea Musc: Denies: extremity pain or joint pain Skin/Breast: Reports: skin tenderness and new lesions (Lacerations to right forearm); Denies: rash or skin pain Neuro: Denies: headache(s) PFSH ED PFSH: Medical History Hospital-acquired pneumonia Aspiration pneumonia Hypertension Diabetes Presence of pancreatic duct stent Pancreatitis, necrotizing Surgical History S/P trigger finger release Date of procedure: June 09, 2024 Pre-op diagnosis: Left index finger triggering Post-op diagnosis: Left index finger triggering Surgeon: Caroline Waldrop MD History of cholecystectomy History of biliary duct stent placement Family History Mother Cancer lung cancer Father Cancer Social History Smoking and tobacco/nicotine status: former use of tobacco/nicotine Alcohol intake: never Physical Exam Const: COMMON NORMALS: no acute distress, average body habitus, patient oriented x3, no limitations, healthy appearing, alert and well nourished HENMT: COMMON NORMALS: normocephalic and atraumatic HEAD & SCALP: normocephalic and atraumatic Neck/C-Spine: COMMON NORMALS: full ROM, no lymphadenopathy, supple and no meningeal signs Resp: COMMON NORMALS: normal respiratory effort, No use of accessory muscles and clear to auscultation bilaterally AUSCULTATION: clear to auscultation bilaterally Cardio: COMMON NORMALS: regular rate and regular rhythm RATE: regular rate RHYTHM: regular rhythm Extremity: COMMON NORMALS: full ROM, capillary refill normal, no joint enlargement and no clubbing, cyanosis or edema Neuro: COMMON NORMALS: patient oriented x3, moves all extremities, no focal motor deficits and no sensory deficits noted SENSORIUM/ORIENTATION: Yes alert MENINGEAL SIGNS: Yes no meningeal signs Skin: COMMON NORMALS: turgor normal NARRATIVE SKIN EXAM: Large 2.5 inch laceration that does involve adipose tissue to medial aspect of the right forearm. There is an adjacent, smaller 1.5 inch laceration also involves adipose tissue. There is no active bleeding at this time. Evidence of mild contamination. Large superficial abrasion to the medial right elbow. GENERAL SKIN EXAM: turgor normal Procedures Laceration Laceration 1: Site: upper extremity (forearm) Side (If applicable): right Size (cm): 6.5 Description: linear and contaminated Depth: simple, single layer Local Anesthetic: lidocaine 2% and with epi Amount of anesthesia used (mL): 6 Pre-repair: wound explored, irrigated extensively and deep structures intact Skin layer closed with: other (prolene) Size (cm): 4-0 Number of sutures: 9 Technique: simple, interrupted Laceration 2: Site: upper extremity (forearm) Side (If applicable): right Size (cm): 4 Description: linear and contaminated Depth: simple, single layer Local Anesthetic: lidocaine 2% and with epi Amount of anesthesia used (mL): 4 Pre-repair: wound explored, irrigated extensively and deep structures intact Skin layer closed with: other (prolene) Size (cm): 4-0 Number of sutures: 7 Technique: simple, interrupted Course Vital Signs: Vital signs: Vital Signs Temperature 97.6 F 07/04/24 19:30 Pulse Rate 66 07/04/24 19:58 Respiratory Rate 18 07/04/24 19:58 Blood Pressure 130/77 07/04/24 19:58 Pulse Oximetry 95 07/04/24 19:58 Oxygen Delivery Me thod Room Air 07/04/24 19:58 MDM - Wound/Laceration Medical Decision Making Patient cut his right forearm on an angle sample tester grinder, causing 2 forearm lacerations along with a superficial laceration to the medial elbow. This elbow laceration was superficial and more of an abrasion, did not require closure. The 2 lacerations were irrigated extensively and scrubbed out following local anesthesia. They were also cleaned with chlorhexidine as well as Betadine. They were repaired, see procedure notes. His sutures will be out in 10-14 days with primary care, we will also be prescribed antibiotics, first dose given here in the emergency department. Proper wound care was discussed, and return precautions were thoroughly discussed in regards to any signs of infection. No radiology studies performed this visit Discharge Plan Discharge Patient Disposition: Home Clinical Impression: Laceration of multiple sites of arm Qualifiers: Encounter type: initial encounter Laterality: right Qualified Code(s): S41.111A - Laceration without foreign body of right upper arm, initial encounter Condition: Stable Prescriptions: New doxycycline hyclate 100 mg tablet 100 mg PO BID 10 Days Qty: 20 0RF No Action Curcumin 95 % powder 1 ea miscellaneous DIRECTED (DME) [facility] [place] 3 mL misc See Rx Instructions .Route Qty: 30 3RF Rx Instructions: change reservoir daily MMT 342 (DME) [facility] [place] Advance Inf Set23 Infusion Set See Rx Instructions .Route Qty: 30 3RF Rx Instructions: change tubing daily MMT 243A insulin aspart U-100 [Novolog U-100 Insulin aspart] 100 unit/mL solution 300 unit continuous subcutaneous infusion DAILY 90 Days Qty: 270 1RF Rx Instructions: 300 units via insulin pump daily (DME) Guardian 4 Glucose Sensor Device See Rx Instructions .Route Qty: 15 1RF Rx Instructions: change sensor every 7days rosuvastatin 10 mg tablet 10 mg PO DAILY Qty: 90 1RF acetaminophen 325 mg Tablet 325 mg PO Q4H PRN (Reason: pain or fever) chlorthalidone 25 mg Tablet 25 mg PO QAM Hold Instructions: Resume on 11/23/23. albuterol sulfate 90 mcg/actuation Hfa Aerosol Inhaler 2 inh INHALATION Q6H PRN (Reason: Shortness Of Breath) fluticasone propionate 50 mcg/actuation [place],Suspension 2 spray INTRANASAL QAM Rx Instructions: administer into each nostril diltiazem HCl 180 mg Capsule,Ext.Rel 24h Degradable 180 mg PO BEDTIME Creon 24,000-76,000 -120,000 unit Capsule,Delayed Release(Dr/Ec) 2 cap PO TID Rx Instructions: administer with meals and/or snacks losartan 50 mg Tablet 75 mg PO BEDTIME Hold Instructions: Resume on 11/23/23. omeprazole 20 mg Capsule,Delayed Release(Dr/Ec) 20 mg PO BID Discharge Orders: Discharge ED (Routine); Ordered 07/04/24 Ordered By: Edwin Polk Referrals: Sharon Canales MD [Primary Care Provider] - Patient Instructions: Laceration (ED) Activity Restrictions/Additional Instructions: Sutures out in 10-14 days. Take antibiotics as prescribed. Keep wound covered for the first 48 hours, afterwards you may dab clean with soap and water. When not cleaning, keep dry at all times and avoid exposure to the sun. May apply ice. Take Tylenol or ibuprofen. Return with any signs of infection as discussed. Coding Level of Care Code ED [employer] for [employer] [employer]ger
[2024-07-04] MEDS: lidocaine-epi 2% 20 mL INJ INJECTION (20:07)
[2024-07-04] MEDS: doxycycline 100 mg Tablet PO (21:46)
[2024-07-04 22:17] VITALS: BP 125/78; PULSE 69; RESP 16; O2SAT 96
== END 2024-07-04 22:21 | disposition home or self-care (01) ==
PROVIDERS: Emergency Provider Physician Assistant; PCP Family Medicine
DX: S51.811A Laceration without foreign body of right forearm, initial encounter (principal); S51.011A Laceration without foreign body of right elbow, initial encounter; W45.8XXA Other foreign body or object entering through skin, initial encounter
CPT/HCPCS: 12004; 99283

== ENCOUNTER 2024-07-25 10:15 | Outpatient (CLI) | payer OTHER, SELFPAY ==
[2024-07-25 11:12] LABS: Estmated Average Glucose 192; Hemoglobin A1C 8.3 % (4.0-6.0)
[2024-07-25 11:24] LABS: Alanine Aminotransferase 42 U/L (0-41); Albumin Level 4.1 g/dL (3.5-5.2); Alkaline Phosphatase 90 U/L (40-130); Aspartate Amino Transferase 35 U/L (0-40); Blood Urea Nitrogen 12 mg/dL (6-20); Calcium 9.1 mg/dL (8.5-10.5); Carbon Dioxide 24 mmol/L (22-29); Chloride 103 mmol/L (98-107); Chol HDL Ratio 5.14 mg/dL (1.0-5.00); Cholesterol 108 mg/dL (0-200); Glomerular Filtration Rate 102.3 mL/min (90-130); Glucose 200 mg/dL (65-115); HDL Cholesterol 21 mg/dL (60-100); LDL Cholesterol Calculated 56 mg/dL (50-129); LDL HDL Ratio 2.67 RATIO (0.00-3.22); Osmolality Calculated 293 mOsm/kg (285-295); Sodium 139 mmol/L (136-145); Total Bilirubin 0.3 mg/dL (0.15-1.2); Total Protein 7.1 g/dL (6.6-8.7); Triglycerides 153 mg/dL (0-150)
[2024-07-25 11:25] LABS: Creatinine Urine, Random 79 mg/dL (39-259); Microalbumin Random Urine 18 ug/dL (0-20)
[2024-07-25 11:31] LABS: Microalbum Creatinine Ratio Ur 228 mg/dL (0-20)
== END 2024-07-25 10:16 | disposition home or self-care (01) ==
LOC: LAB 10:17
PROVIDERS: PCP Family Medicine; Visit Provider Internal Medicine
DX: E10.9 Type 1 diabetes mellitus without complications (principal)
CPT/HCPCS: 36415; 80053; 80061; 82044; 83036

== ENCOUNTER → 2024-08-22 11:15 | Outpatient (BNVA) | payer OTHER, SELFPAY | PROVIDERS: PCP Family Medicine; Visit Provider Internal Medicine | DX: E10.9 Type 1 diabetes mellitus without complications (principal); E78.2 Mixed hyperlipidemia; Z87.19 Personal history of other diseases of the digestive system; Z79.4 Long term (current) use of insulin | CPT/HCPCS: 99214 ==

== ENCOUNTER → 2024-10-05 12:57 | Outpatient (BNVA) | payer OTHER, SELFPAY | PROVIDERS: PCP Family Medicine; Visit Provider Specialist | DX: M25.551 Pain in right hip (principal); M25.552 Pain in left hip; M53.3 Sacrococcygeal disorders, not elsewhere classified; M54.31 Sciatica, right side; M54.32 Sciatica, left side | CPT/HCPCS: 73523; 99214 ==

== ENCOUNTER → 2024-10-10 14:55 | Outpatient (BNVA) | payer OTHER, SELFPAY | PROVIDERS: PCP Family Medicine; Visit Provider Specialist | DX: M25.561 Pain in right knee (principal) | CPT/HCPCS: 73560; 73565 ==

== ENCOUNTER 2024-11-03 11:00 | Outpatient (RCR) | payer OTHER, SELFPAY | END 2024-11-11 23:59 | disposition home or self-care (01) | LOC: APT 11:00 | PROVIDERS: Visit Provider Specialist | DX: M54.32 Sciatica, left side (principal); M54.50 Low back pain, unspecified | CPT/HCPCS: 97110; 97161 ==

== ENCOUNTER 2024-11-11 12:43 | Outpatient (CLI) | payer OTHER, SELFPAY ==
--- NOTE | 2024-11-11 13:00 | MR_ITS ---
WS: [id number] MRI RIGHT KNEE HISTORY: M25.561 - Pain in right knee COMPARISON: Radiograph 10/10/2024 Anterior cruciate ligament: Intact. Posterior cruciate ligament: Intact. Medial collateral ligament: Intact. Posterior lateral corner structures: Intact. Medial menisci: Intact. Normal signal, size and shape. Lateral meniscus: Intact. Normal signal, size and shape. Extensor mechanism: Distal quadriceps tendon and patellar tendons are intact. Fluid and soft tissue: No joint effusion. Tiny Barraza's cyst. Osseous and articular structures: Patellofemoral compartment: Normal. Medial compartment: No significant joint space narrowing. Very mild fissuring of the cartilage. No marrow edema or full-thickness defect. Lateral compartment: No significant joint space narrowing. Cartilage is intact. No marrow edema. MR/MR knee RT wo con* [id number] IMPRESSION: 1. No ACL tear. 2. No MCL tear. 3. Very minimal narrowing and fluid in the medial compartment. No marrow edema or fracture. 4. Small Barraza's cyst.
--- NOTE | 2024-11-11 13:18 | XR_ITS ---
WS: [id number] Right elbow, AP and lateral views, 11/11/2024 Clinical Data: CHECK FOR FOREIGN BODY, PRE MRI Comparison: None. Findings: No fractures or dislocations are seen. The radial head is normal. The soft tissues are unremarkable. No radiopaque metal foreign bodies are seen. XR/XR elbow RT 2V [id number] Impression: Negative for radiopaque metal foreign bodies.
== END 2024-11-11 12:44 | disposition home or self-care (01) ==
PROVIDERS: PCP Family Medicine; Visit Provider Specialist
DX: M25.561 Pain in right knee (principal); Z01.818 Encounter for other preprocedural examination; M71.21 Synovial cyst of popliteal space [Baker], right knee; R93.6 Abnormal findings on diagnostic imaging of limbs
CPT/HCPCS: 73070; 73721

== ENCOUNTER 2024-11-12 06:00 | Outpatient (RCR) | payer OTHER, SELFPAY | END 2024-12-12 23:59 | disposition home or self-care (01) | LOC: APT 06:00 | PROVIDERS: PCP Family Medicine; Visit Provider Specialist | DX: M54.32 Sciatica, left side (principal); M54.50 Low back pain, unspecified | CPT/HCPCS: 97110 ==

== ENCOUNTER → 2024-12-05 07:56 | Outpatient (BNVA) | payer OTHER, SELFPAY | PROVIDERS: PCP Family Medicine; Visit Provider Specialist | DX: M25.361 Other instability, right knee (principal) | CPT/HCPCS: 99214 ==

== ENCOUNTER 2024-12-31 09:17 | Outpatient (CLI) | payer OTHER, SELFPAY ==
[2024-12-31 09:44] LABS: Estmated Average Glucose 214; Hemoglobin A1C 9.1 % (4.0-6.0)
[2024-12-31 09:50] LABS: Creatinine Urine, Random 157 mg/dL (39-259); Microalbum Creatinine Ratio Ur 204 mg/dL (0-20); Microalbumin Random Urine 32 ug/dL (0-20)
[2024-12-31 09:54] LABS: Alanine Aminotransferase 40 U/L (0-41); Albumin Level 4.1 g/dL (3.5-5.2); Alkaline Phosphatase 81 U/L (40-130); Anion Gap 16.8 (5-19); Aspartate Amino Transferase 33 U/L (0-40); Blood Urea Nitrogen 16 mg/dL (6-20); Calcium 9.4 mg/dL (8.5-10.5); Carbon Dioxide 24 mmol/L (22-29); Chloride 102 mmol/L (98-107); Chol HDL Ratio 4.79 mg/dL (1.0-5.00); Cholesterol 115 mg/dL (0-200); Globulin 3.2 g/dL (1.3-4.6); Glomerular Filtration Rate 101.9 mL/min (90-130); Glucose 147 mg/dL (65-115); HDL Cholesterol 24 mg/dL (60-100); LDL Cholesterol Calculated 38 mg/dL (50-129); LDL HDL Ratio 1.58 RATIO (0.00-3.22); Osmolality Calculated 292 mOsm/kg (285-295); Potassium 3.8 mmol/L (3.5-5.1); Sodium 139 mmol/L (136-145); Total Bilirubin 0.3 mg/dL (0.15-1.2); Total Protein 7.3 g/dL (6.6-8.7); Triglycerides 267 mg/dL (0-150)
== END 2024-12-31 09:18 | disposition home or self-care (01) ==
PROVIDERS: PCP Family Medicine; Visit Provider Internal Medicine
DX: E10.9 Type 1 diabetes mellitus without complications (principal); E78.2 Mixed hyperlipidemia
CPT/HCPCS: 80053; 80061; 82044; 83036

== ENCOUNTER → 2025-01-02 08:10 | Outpatient (BNVA) | payer OTHER, SELFPAY | PROVIDERS: PCP Family Medicine; Visit Provider Internal Medicine | DX: E10.9 Type 1 diabetes mellitus without complications (principal); E78.2 Mixed hyperlipidemia; Z87.19 Personal history of other diseases of the digestive system | CPT/HCPCS: 99214 ==

== ENCOUNTER 2025-01-12 05:00 | Outpatient (RCR) | payer OTHER, SELFPAY | END 2025-02-11 23:59 | disposition home or self-care (01) | LOC: APT 05:00 | PROVIDERS: Visit Provider Family Medicine | DX: M54.50 Low back pain, unspecified (principal) | CPT/HCPCS: 97161 ==

== ENCOUNTER 2025-04-01 07:33 | Outpatient (CLI) | payer OTHER, SELFPAY ==
[2025-04-01 09:00] LABS: Estmated Average Glucose 189; Hemoglobin A1C 8.2 % (4.0-6.0)
[2025-04-01 09:01] LABS: Alanine Aminotransferase 59 U/L (0-41); Albumin Level 3.9 g/dL (3.5-5.2); Alkaline Phosphatase 82 U/L (40-130); Anion Gap 17.8 (5-19); Aspartate Amino Transferase 45 U/L (0-40); Blood Urea Nitrogen 18 mg/dL (6-20); Calcium 9.8 mg/dL (8.5-10.5); Carbon Dioxide 24 mmol/L (22-29); Chloride 101 mmol/L (98-107); Cholesterol 109 mg/dL (0-200); Globulin 3.6 g/dL (1.3-4.6); Glucose 138 mg/dL (65-115); HDL Cholesterol 25 mg/dL (60-100); Osmolality Calculated 292 mOsm/kg (285-295); Potassium 3.8 mmol/L (3.5-5.1); Sodium 139 mmol/L (136-145); Total Protein 7.5 g/dL (6.6-8.7); Triglycerides 255 mg/dL (0-150)
[2025-04-01 09:02] LABS: Creatinine Urine, Random 156 mg/dL (39-259)
[2025-04-01 09:03] LABS: Microalbum Creatinine Ratio Ur 135 mg/dL (0-20)
== END 2025-04-01 07:34 | disposition home or self-care (01) ==
PROVIDERS: PCP Family Medicine; Visit Provider Internal Medicine
DX: E78.2 Mixed hyperlipidemia (principal); E10.9 Type 1 diabetes mellitus without complications; Z87.19 Personal history of other diseases of the digestive system
CPT/HCPCS: 36415; 80053; 80061; 82044; 83036

== ENCOUNTER → 2025-04-03 07:57 | Outpatient (BNVA) | payer OTHER, SELFPAY | PROVIDERS: PCP Family Medicine; Visit Provider Internal Medicine | DX: E10.9 Type 1 diabetes mellitus without complications (principal); E78.2 Mixed hyperlipidemia | CPT/HCPCS: 99214 ==

== ENCOUNTER 2025-06-30 10:32 | Outpatient (CLI) | payer OTHER, SELFPAY ==
[2025-06-30 11:18] LABS: Estmated Average Glucose 197; Hemoglobin A1C 8.5 % (4.0-6.0)
[2025-06-30 11:26] LABS: Alanine Aminotransferase 47 U/L (0-41); Albumin Level 4.3 g/dL (3.5-5.2); Alkaline Phosphatase 109 U/L (40-130); Anion Gap 16.8 (5-19); Aspartate Amino Transferase 35 U/L (0-40); Blood Urea Nitrogen 13 mg/dL (6-20); Calcium 9.6 mg/dL (8.5-10.5); Carbon Dioxide 27 mmol/L (22-29); Chloride 100 mmol/L (98-107); Cholesterol 130 mg/dL (0-200); Globulin 3.1 g/dL (1.3-4.6); Glucose 124 mg/dL (65-115); HDL Cholesterol 27 mg/dL (60-100); Osmolality Calculated 292 mOsm/kg (285-295); Potassium 3.8 mmol/L (3.5-5.1); Sodium 140 mmol/L (136-145); Total Protein 7.4 g/dL (6.6-8.7); Triglycerides 258 mg/dL (0-150)
[2025-06-30 11:32] LABS: Creatinine Urine, Random 197 mg/dL (39-259)
[2025-06-30 11:33] LABS: Microalbum Creatinine Ratio Ur 86 mg/dL (0-20)
== END 2025-06-30 10:33 | disposition home or self-care (01) ==
PROVIDERS: PCP Family Medicine; Visit Provider Internal Medicine
DX: Z87.19 Personal history of other diseases of the digestive system (principal); E78.2 Mixed hyperlipidemia; E10.9 Type 1 diabetes mellitus without complications
CPT/HCPCS: 36415; 80053; 80061; 82044; 83036

== ENCOUNTER → 2025-07-03 08:03 | Outpatient (BNVA) | payer OTHER, SELFPAY | PROVIDERS: PCP Family Medicine; Visit Provider Internal Medicine Endocrinology, Diabetes & Metabolism | DX: E10.9 Type 1 diabetes mellitus without complications (principal); E78.2 Mixed hyperlipidemia; Z87.19 Personal history of other diseases of the digestive system | CPT/HCPCS: 99214 ==

== ENCOUNTER → 2025-08-03 08:55 | Outpatient (BNVA) | payer OTHER, SELFPAY | PROVIDERS: PCP Family Medicine; Visit Provider Podiatrist Foot & Ankle Surgery | DX: M77.41 Metatarsalgia, right foot (principal); M77.42 Metatarsalgia, left foot; E10.9 Type 1 diabetes mellitus without complications; Z79.4 Long term (current) use of insulin | CPT/HCPCS: 99203 ==